=== PATIENT | female | born 1965 | race Caucasian/White ===

== ENCOUNTER 2017-02-13 01:00 | Inpatient (IN) | payer OTHER ==
[2017-02-13] VITALS (13 sets, daily range): BP systolic 155–173; BP diastolic 70–82; PULSE 74–99; RESP 18–24; TEMP 97.7–98.4; O2SAT 96–97
[~2017-02-13 01:00] MED LIST: METO50TA PO; OMEP40CA2 PO; SIMV40TA PO
--- NOTE | 2017-02-13 02:28 | HHI.HP ---
HPI Service Critical Care Medicine Primary Care Physician Unknown Admission Diagnosis Diagnosis: Travel History International Travel<30 Days: No Contact w/Intl Traveler <30 Da: No Traveled to Known Affected Are: No History of Present Illness 51-year-old female with a past medical history of hypertension presents with left-sided weakness left facial droop, altered mental status. Symptoms started at 2044. Patient had GI upset symptoms for the last 3-4 days including nausea, vomiting, diarrhea. Her brought her to the emergency room for the gastric enteritis symptoms however in route patient presented with left sided weakness that progressively got worse to the point he had to left her off the car to the emergency room wheelchair. Was evaluated by neurologist sap functional analyst and decision was made to administer TPA. Review of Systems Constitutional: DENIES: Diaphoretic episodes, Fatigue, Fever, Weight gain, Weight loss, Chills, Dizziness, Change in appetite, Night Sweats Endocrine: DENIES: Abnorml menstrual pattern, Heat/cold intolerance, Polydipsia , Polyuria, Polyphagia Eyes: DENIES: Blurred vision, Diplopia, Eye inflammation, Eye pain, Vision loss , Photosensitivity, Double Vision Ears, nose, mouth, throat: DENIES: Tinnitus, Hearing loss, Vertigo, Nasal discharge, Oral lesions, Throat pain, Hoarseness, Ear Pain, Running Nose, Epistaxis, Sinus Pain, Toothache, Odynophagia Respiratory: DENIES: Apneas, Cough, Snoring, Wheezing, Hemoptysis, Sputum production, Shortness of breath Cardiovascular: DENIES: Chest pain, Palpitations, Syncope, Dyspnea on Exertion , PND, Lower Extremity Edema, Orthopnea, Claudication Gastrointestinal: COMPLAINS OF: Vomiting, DENIES: Abdominal pain, Black stools , Bloody stools, Constipation, Diarrhea, Nausea, Difficulty Swallowing, Anorexia Genitourinary: DENIES: Abnormal vaginal bleeding, Dysmenorrhea, Dyspareunia, Sexual dysfunction, Urinary frequency, Urinary incontinence, Urgency, Hematuria , Dysuria, Nocturia, Vaginal discharge Musculoskeletal: DENIES: Joint pain, Muscle aches, Stiffness, Joint Swelling, Back pain, Neck pain Integumentary: DENIES: Abnormal pigmentation, Pruritus, Rash, Nail changes, Breast masses, Breast skin changes, Nipple discharge Hematologic/lymphatic: DENIES: Bruising, Lymphadenopathy Immunologic/allergic: DENIES: Eczema, Urticaria Neurologic: COMPLAINS OF: Abnormal gait, Localized weakness, Poor Balance, DENIES: Headache, Paresthesias, Seizures, Speech Problems, Tremor Psychiatric: DENIES: Anxiety, Confusion, Mood changes, Depression, Hallucinations, Agitation, Suicidal Ideation, Homicidal Ideation, Delusions Past Family Social History Allergies: Coded Allergies: Sulfa (Sulfonamide Antibiotics) (Verified Allergy, Unknown, 02/12/17) Past Medical History Hypertension: Yes Reported Medications Reported Meds & Active Scripts Active Reported Simvastatin 40 Mg Tab 40 Mg PO HS Omeprazole 40 Mg Cap 40 Mg PO DAILY Metoprolol Tartrate 50 Mg Tab 50 Mg PO BID Active Ordered Medications Current Medications Medications (Trade) Dose Ordered Sig/Silas Route PRN Reason Start Time Stop Time Status Last Admin Dose Admin Metoprolol Tartrate (Lopressor) 50 mg BID PO 02/13/17 09:00 Pravastatin Sodium (Pravachol) 80 mg HS PO 02/13/17 21:00 Sodium Chloride 1,000 ml @ 84 mls/hr [id number] IV 02/13/17 02:22 Sodium Chloride (NS Flush) 2 ml UNSCH PRN IV FLUSH FLUSH AFTER USING IV ACCESS 02/13/17 02:30 Sodium Chloride (NS Flush) 2 ml BID IV FLUSH 02/13/17 09:00 Acetaminophen (Tylenol) 650 mg Q6H PRN PO PAIN 1-10 AND/OR FEVER >101F 02/13/17 02:30 Famotidine (Pepcid Inj) 20 mg Q12HR IV PUSH 02/13/17 09:00 Ondansetron HCl (Zofran Inj) 4 mg Q6H PRN IV PUSH NAUSEA OR VOMITING 02/13/17 02:30 Albuterol/ Ipratropium (Duoneb Neb) 1 ampule Q2HR NEB PRN INH WHEEZING 02/13/17 02:30 Miscellaneous Information 1 [id number] XX 02/13/17 02:30 Chlorhexidine Gluconate (Chlorhexidine 2% Cloth) 3 pack Taper DAILY@04 TOP 02/13/17 04:00 02/09/18 03:59 Chlorhexidine Gluconate (Chlorhexidine 2% Cloth) 3 pack UNSCH PRN TOP HYGIENIC CARE 02/13/17 02:30 Senna/Docusate Sodium (Brea-Colace) 1 tab BID PO 02/13/17 09:00 Magnesium Hydroxide (Milk Of Magnesia Liq) 30 ml Q12H PRN PO Mild constipation 02/13/17 02:30 Sennosides (Senokot) 17.2 mg Q12H PRN PO Moderate constipation 02/13/17 02:30 Bisacodyl (Dulcolax Supp) 10 mg DAILY PRN RECTAL SEVERE CONSITIPATION 02/13/17 02:30 Lactulose (Lactulose Liq) 30 ml DAILY PRN PO SEVERE CONSITIPATION 02/13/17 02:30 Family History No family history of early stroke Social History Denies tobacco, alcohol, or illicit drug abuse Physical Exam Physical Exam General: Patient is alert awake and oriented 3 SKIN: Focused skin assessment warm/dry. HEAD: Atraumatic. Normocephalic. EYES: Pupils equal and round. No scleral icterus. No injection or drainage. ENT: No nasal bleeding or discharge. Mucous membranes pink and moist. NECK: Trachea midline. No JVD. CARDIOVASCULAR: Regular rate and rhythm. No murmur appreciated. RESPIRATORY: No accessory muscle use. Clear to auscultation. Breath sounds equal bilaterally. GASTROINTESTINAL: Abdomen soft, non-tender, nondistended. Hepatic and splenic margins not palpable. MUSCULOSKELETAL: No obvious deformities. No clubbing. No cyanosis. No edema. NEUROLOGICAL: Awake and alert. Left-sided paralysis left facial droop and slurring of speech. PSYCHIATRIC: Appropriate mood and affect; insight and judgment normal. Caprini VTE Risk Assessment Caprini VTE Risk Assessment: Mod/High Risk (score >= 2) VTE Pharm Contraindication: Documented Caprini Risk Assessment Model Point Value = 1 Point Value = 2 Point Value = 3 Point Value = 5 Age 41-60 Minor surgery BMI > 25 kg/m2 Swollen legs Varicose veins or History of unexplained or recurrent spontaneous Oral contraceptives or hormone replacement Sepsis (< 1 month) Serious lung disease, including pneumonia (< 1 month) Abnormal pulmonary function Acute myocardial infarction Congestive heart failure (< 1 month) History of inflammatory bowel disease Medical patient at bed rest Age 61-74 Arthroscopic surgery Major open surgery (> 45 min) Laparoscopic surgery (> 45 min) Malignancy Confined to bed (> 72 hours) Immobilizing plaster cast Central venous access Age >= 75 History of VTE Family history of VTE Factor V Leiden Prothrombin [id number] Lupus anticoagulant Anticardiolipin antibodies Elevated serum homocysteine Heparin-induced thrombocytopenia Other congenital or acquired thrombophilia Stroke (< 1 month) Elective arthroplasty Hip, pelvis, or leg fracture Acute spinal cord injury (< 1 month) Prophylaxis Regimen Total Risk Factor Score Risk Level Prophylaxis Regimen 0-1 Low Early ambulation 2 Moderate Order ONE of the following: *Sequential Compression Device (SCD) *Heparin 5000 units SQ BID 3-4 Higher Order ONE of the following medications: *Heparin 5000 units SQ TID *Enoxaparin/Lovenox 40 mg SQ daily (WT < 150 kg, CrCl > 30 mL/min) *Enoxaparin/Lovenox 30 mg SQ daily (WT < 150 kg, CrCl > 10-29 mL/min) *Enoxaparin/Lovenox 30 mg SQ BID (WT < 150 kg, CrCl > 30 mL/min) AND/OR *Sequential Compression Device (SCD) 5 or more Highest Order ONE of the following medications: *Heparin 5000 units SQ TID (Preferred with Epidurals) *Enoxaparin/Lovenox 40 mg SQ daily (WT < 150 kg, CrCl > 30 mL/min) *Enoxaparin/Lovenox 30 mg SQ daily (WT < 150 kg, CrCl > 10-29 mL/min) *Enoxaparin/Lovenox 30 mg SQ BID (WT < 150 kg, CrCl > 30 mL/min) AND *Sequential Compression Device (SCD) Assessment and Plan Assessment and Plan Acute CVA - Status post TPA administration - Neuro checks every hour - Management per neurology - PT and OT - SBP goal less than 180 Hypertension - Labetalol and hydralazine when necessary to keep SBP less than 180 Dyslipidemia - Simvastatin GERD - IV Pepcid twice a day DVT GI prophylaxis - Teds SCDs - No pharmacological DVT prophylaxis until 24 hours after TPA administration - Pepcid Critical Care: The total critical care time was 35 minutes. Time to perform other separately billable procedures was not included in the critical care time. Germán Bush MD Feb 13, 2017 2:28 am
[2017-02-13] MEDS ORDERED: MISCELLANEOUS NURSING INFORMATION XX SCH (02:30)
[2017-02-13] MEDS ORDERED: CHLORHEXIDINE GLUCONATE 2 % 1 PACK (2 CLOTHS) TOP PRN (02:30)
[2017-02-13] MEDS ORDERED: BISACODYL 10 MG SUPP RECTAL PRN (02:30)
[2017-02-13] MEDS ORDERED: LACTULOSE SYRUP 20 GM/30 ML CUP PO PRN (02:30)
[2017-02-13] MEDS ORDERED: MAGNESIUM HYDROXIDE SUSP 30 ML CUP PO PRN (02:30)
[2017-02-13] MEDS ORDERED: SENNOSIDES 8.6 MG TAB PO PRN (02:30)
[2017-02-13] MEDS ORDERED: RESP: ALBUTEROL 2.5 MG/IPRATROPIUM 0.5 MG NEB (PRN) INH (02:30)
[2017-02-13] MEDS ORDERED: ONDANSETRON HCL 4 MG/2 ML VIAL IV PUSH PRN (02:30)
[2017-02-13] MEDS ORDERED: SODIUM CHLORIDE 0.9% FLUSH 10 ML FLUSH IV FLUSH PRN (02:30)
[2017-02-13] MEDS: CHLORHEXIDINE GLUCONATE 2 % 1 PACK (2 CLOTHS) TOP SCH (04:00)
[2017-02-13] MEDS: SODIUM CHLOR 0.9% 1000 ML INJ 1,000 ML IV SCH ×3 (04:00→20:05)
[2017-02-13] MEDS ORDERED: PANTOPRAZOLE SODIUM 40 MG VIAL IV PUSH ONE (06:15)
[2017-02-13] MEDS: DOCUSATE SODIUM 50 MG/SENNA 8.6 MG TAB PO SCH ×2 (07:44→20:04)
[2017-02-13] MEDS: FAMOTIDINE 20 MG/2 ML VIAL IV PUSH SCH ×2 (07:45→20:04)
[2017-02-13] MEDS: SODIUM CHLORIDE 0.9% FLUSH 10 ML FLUSH IV FLUSH SCH ×2 (07:45→21:00)
[2017-02-13] MEDS: METOPROLOL TARTRATE 50 MG TAB PO SCH ×2 (07:45→21:00)
--- NOTE | 2017-02-13 09:35 | EKG ---
Date Performed: 02/13/2017 Time Performed: 07:19:04 PTAGE: 51 years EKG: Sinus rhythm POSSIBLE LEFT ATRIAL ENLARGEMENT POSSIBLE INFERIOR MYOCARDIAL INFARCTION , OF INDETERMINATE AGE Nons pecific T wave changes No significant change from prior electrocardiogram. NO PREVIOUS TRACING DOCTOR: Shreyas Miller Interpretating Date/Time 02/13/2017 09:34:39
[2017-02-13] MEDS: hydrALAZINE HCL 20 MG/ML VIAL IV PUSH PRN (17:45)
[2017-02-13] MEDS: LABETALOL HCL 100 MG/20 ML VIAL IV PUSH PRN (18:46)
[2017-02-13] MEDS: ACETAMINOPHEN 325 MG TAB PO PRN (19:43)
[2017-02-13] MEDS: PRAVASTATIN SOD 80 MG TAB PO SCH (20:04)
[2017-02-13 22:09] LABS: AUTOMATED NEUTROPHIL # 14.4 TH/MM3 (1.8-7.7); BASOPHIL % 0.1 % (0.0-2.0); EOSINOPHIL % 0.1 % (0.0-4.0); HEMATOCRIT 44.5 % (35.0-46.0); LYMPH % 9.4 % (9.0-44.0); LYMPHOCYTE # 1.7 TH/MM3 (1.0-4.8); MEAN CELL VOLUME 94.4 FL (80.0-100.0); MEAN CORPUSCULAR HEMOGLOBIN 31.5 PG (27.0-34.0); MEAN CORPUSCULAR HGB CONC 33.3 % (32.0-36.0); MONO % 11.8 % (0.0-8.0); NEUT % 78.6 % (16.0-70.0); PLATELET COUNT 399 TH/MM3 (150-450); RED BLOOD COUNT 4.72 MIL/MM3 (4.00-5.30); RED CELL DISTRIBUTION WIDTH 14.8 % (11.6-17.2); WHITE BLOOD COUNT 18.4 TH/MM3 (4.0-11.0)
[2017-02-13 22:22] LABS: HEMO FLAGS AUTO DIFF
--- NOTE | 2017-02-13 22:22 | RADRPT ---
EXAM DATE/TIME: 02/13/2017 22:05 [facility] COMPARISON: CT BRAIN W/O CONTRAST, February 12, 2017, 21:43. INDICATIONS : F/U strokde 02/12/17, post TPA 02/12/17 2303. Left side facial droop. RADIATION DOSE: 35.15 CTDIvol (mGy) MEDICAL HISTORY : Hypertension. SURGICAL HISTORY : None. ENCOUNTER: Subsequent ACUITY: 1 day PAIN SCALE: 0/10 LOCATION: cranial TECHNIQUE: Multiple contiguous axial images were obtained of the head. Using automated exposure control and adj ustment of the mA and/or kV according to patient size, radiation dose was kept as low as reasonably a chievable to obtain optimal diagnostic quality images. DICOM format image data is available electro nically for review and comparison. FINDINGS: CEREBRUM: The ventricles are normal for age. Interval development of a focal area of hypodensity in the high r ight anterior parietal convexity characteristic of interval infarction. No evidence of midline shift, mass lesion, hemorrhage or acute infarction. No extra-axial fluid collections are seen. POSTERIOR FOSSA: The cerebellum and brainstem are intact. The 4th ventricle is midline. The cerebellopontine angle i s unremarkable. EXTRACRANIAL: The visualized portion of the orbits is intact. SKULL: The calvaria is intact. No evidence of skull fracture. CONCLUSION: 1. Interval development of a focal area of hypodensity in the high right anterior parietal convexity characteristic of a branch vessel infarct in the right MCA territory. 2. No acute hemorrhage. No midline shift. Jered Harley MD on February 13, 2017 at 22:17 Board Certified Radiologist. This report was verified electronically.
[2017-02-13 22:28] LABS: ANION GAP 12 MEQ/L (5-15); AST (GOT) 21 U/L (15-37); BICARBONATE 17.6 MEQ/L (21.0-32.0); BLOOD UREA NITROGEN 20 MG/DL (7-18); CHLORIDE 109 MEQ/L (98-107); GLOMERULAR FILTRATION RATE 46 ML/MIN (>89); MAGNESIUM 2.1 MG/DL (1.5-2.5); SODIUM (NA) 139 MEQ/L (136-145)
[2017-02-13 22:30] LABS: ALT (GPT) 19 U/L (10-53)
[2017-02-13 22:32] LABS: ALKALINE PHOSPHATASE 99 U/L (45-117); TOTAL BILIRUBIN ADULT 0.2 MG/DL (0.2-1.0)
[2017-02-13 22:45] LABS: BANDS 6 % (0-6); NEUTROPHIL # MANUAL DIFF 14.4 TH/MM3 (1.8-7.7); POLYS (SEG NEUTROPHILS) 72 % (16-70); WBC DIFF SAMPLE 100
[2017-02-13 22:46] LABS: PLATELET ESTIMATE SMEAR NORMAL (NORMAL); PLATELET MORPHOLOGY NORMAL (NORMAL); SCAN/DIFF FINAL DIFF MANUAL; TEARDROP RBCS 1+ (NORMAL)
[2017-02-14] VITALS (12 sets, daily range): BP systolic 161–190; BP diastolic 72–84; PULSE 74–90; RESP 17–22; TEMP 97.6–98.4; O2SAT 96–98
[2017-02-14] MEDS: LABETALOL HCL 100 MG/20 ML VIAL IV PUSH PRN ×6 (00:15→18:35)
[2017-02-14] MEDS: CHLORHEXIDINE GLUCONATE 2 % 1 PACK (2 CLOTHS) TOP SCH (04:00)
[2017-02-14 05:19] LABS: BASOPHIL % 0.3 % (0.0-2.0); EOSINOPHIL # 0.1 TH/MM3 (0-0.4); EOSINOPHIL % 0.4 % (0.0-4.0); HEMATOCRIT 43.2 % (35.0-46.0); HEMO FLAGS DIFF FINAL; LYMPH % 12.5 % (9.0-44.0); LYMPHOCYTE # 2.1 TH/MM3 (1.0-4.8); MEAN CELL VOLUME 93.1 FL (80.0-100.0); MEAN CORPUSCULAR HGB CONC 33.3 % (32.0-36.0); MONO % 11.1 % (0.0-8.0); NEUT % 75.7 % (16.0-70.0); PLATELET COUNT 398 TH/MM3 (150-450); RED BLOOD COUNT 4.64 MIL/MM3 (4.00-5.30); RED CELL DISTRIBUTION WIDTH 14.7 % (11.6-17.2); WHITE BLOOD COUNT 17.2 TH/MM3 (4.0-11.0)
[2017-02-14 05:43] LABS: ANION GAP 11 MEQ/L (5-15); AST (GOT) 17 U/L (15-37); BICARBONATE 18.9 MEQ/L (21.0-32.0); BLOOD UREA NITROGEN 18 MG/DL (7-18); CHLORIDE 110 MEQ/L (98-107); GLOMERULAR FILTRATION RATE 61 ML/MIN (>89); MAGNESIUM 2.2 MG/DL (1.5-2.5); POTASSIUM 3.9 MEQ/L (3.5-5.1); SODIUM (NA) 140 MEQ/L (136-145)
[2017-02-14 05:47] LABS: ALKALINE PHOSPHATASE 88 U/L (45-117); ALT (GPT) 16 U/L (10-53); TOTAL BILIRUBIN ADULT 0.2 MG/DL (0.2-1.0)
[2017-02-14] MEDS: METOPROLOL TARTRATE 50 MG TAB PO SCH ×2 (07:34→21:00)
[2017-02-14] MEDS: DOCUSATE SODIUM 50 MG/SENNA 8.6 MG TAB PO SCH ×2 (07:35→21:00)
[2017-02-14] MEDS: FAMOTIDINE 20 MG/2 ML VIAL IV PUSH SCH ×2 (07:35→22:31)
[2017-02-14] MEDS: SODIUM CHLORIDE 0.9% FLUSH 10 ML FLUSH IV FLUSH SCH ×2 (07:36→22:10)
--- NOTE | 2017-02-14 08:20 | RADRPT ---
EXAM DATE/TIME: 02/14/2017 07:57 [facility] COMPARISON: CT BRAIN W/O CONTRAST, February 13, 2017, 22:05. INDICATIONS : Altered mental status post TPA. RADIATION DOSE: 55.78 CTDIvol (mGy) MEDICAL HISTORY : Cerebrovascular disease. Hypertension. SURGICAL HISTORY : Nephrectomy, right. ENCOUNTER: Subsequent ACUITY: 2 days PAIN SCALE: 0/10 LOCATION: cranial TECHNIQUE: Multiple contiguous axial images were obtained of the head. Using automated exposure control and adj ustment of the mA and/or kV according to patient size, radiation dose was kept as low as reasonably a chievable to obtain optimal diagnostic quality images. DICOM format image data is available electro nically for review and comparison. FINDINGS: Again seen is an area of decreased density involving the cortex and underlying white matter within th e right frontal lobe. This is consistent with an infarction within the right MCA territory. This is u nchanged. No hemorrhage observe. No mass appreciated. Ventricles are normal in size. The calvarium is intact. CONCLUSION: Unchanged right MCA territory infarction. No hemorrhage. Farooq Saldana Jr., MD on February 14, 2017 at 8:15 Board Certified Radiologist. This report was verified electronically.
[2017-02-14] MEDS: LISINOPRIL 5 MG TAB PO SCH ×2 (09:30→21:00)
--- NOTE | 2017-02-14 09:34 | HHI.CCPN ---
Subjective Remarks/Hospital Course 51-year-old female with a past medical history of hypertension presents with left-sided weakness left facial droop, altered mental status. Symptoms started at 2044. Patient had GI upset symptoms for the last 3-4 days including nausea, vomiting, diarrhea. Her brought her to the emergency room for the gastric enteritis symptoms however in route patient presented with left sided weakness that progressively got worse to the point he had to left her off the car to the emergency room wheelchair. Was evaluated by neurologist protection officer and decision was made to administer TPA. 02/14: CT Head with unchanged right frontal lobe infarct. Moderate hypertension controlled with prn. Add lisinopril to lopressor (home med). New tremor left side. For MRI today. Objective Vital Signs Date Time Temp Pulse Resp B/P (MAP) Pulse Ox O2 Delivery O2 Flow Rate FiO2 02/14/17 06:00 80 02/14/17 04:00 97.9 17 186/80 (115) 96 02/13/17 20:20 21 02/13/17 07:49 Nasal Cannula 3.00 Intake and Output 02/14/17 02/14/17 02/15/17 08:00 16:00 00:00 Intake Total 240 ml Output Total 625 ml Balance -385 ml Result Diagram: 02/14/17 0412 02/14/17 041 Objective Remarks General: Patient is alert awake and oriented 3 HEAD: Atraumatic. Normocephalic. EYES: Pupils equal and round. No scleral icterus. No injection or drainage. ENT: No nasal bleeding or discharge. Mucous membranes pink and moist. NECK: Trachea midline. No JVD. CARDIOVASCULAR: Regular rate and rhythm. No murmur appreciated. RESPIRATORY: No accessory muscle use. Clear to auscultation. Breath sounds equal bilaterally. Comfortable. GASTROINTESTINAL: Abdomen soft, non-tender, nondistended. Hepatic and splenic margins not palpable. MUSCULOSKELETAL: No obvious deformities. No clubbing. No cyanosis. No edema. NEUROLOGICAL: Awake and alert. Left-sided weakness and left facial droop and mild slurring of speech. PSYCHIATRIC: Appropriate mood and affect; insight and judgment normal. A/P Assessment and Plan Acute CVA - Status post TPA administration 02/12 in [place]. - Neuro checks every 2 hour - Management per neurology - PT and OT - SBP goal less than 180 Hypertension - Labetalol and hydralazine when necessary to keep SBP less than 180 Dyslipidemia - Simvastatin GERD - IV Pepcid twice a day DVT GI prophylaxis - Teds SCDs - No pharmacological DVT prophylaxis until 24 hours after TPA administration - Pepcid Overall impression: Fixed neuro deficit s/p ischemic CVA. Needs better BP control. Lorenzo Rodríguez MD Feb 14, 2017 09:34
[2017-02-14] MEDS: ACETAMINOPHEN 325 MG TAB PO PRN (09:44)
[2017-02-14] MEDS: NICOTINE 21 MG/24 HR PATCH T-DERMAL SCH (11:00)
[2017-02-14] MEDS: SODIUM CHLOR 0.9% 1000 ML INJ 1,000 ML IV SCH (14:07)
--- NOTE | 2017-02-14 15:25 | RADRPT ---
EXAM DATE/TIME: 02/14/2017 14:38 [facility] COMPARISON: MRA BRAIN W/O CONTRAST, February 14, 2017, 14:38. CT BRAIN W/O CONTRAST, February 13, 2017, 22:05. CT BRAIN W/O CONTRAST, February 12, 2017, 21:43. CT BRAIN W/O CONTRAST, February 14, 2017, 7:57. INDICATIONS : Followup cerebral vascular accident status post TPA administration on 1127 2016. Left-sided facial dr oop. Abnormal prior head CT with right middle cerebral artery territory infarct. MEDICAL HISTORY : Hypertension. SURGICAL HISTORY : Nephrectomy, right. ENCOUNTER: Initial ACUITY: 1 day PAIN SCORE: 0/10 LOCATION: Head. TECHNIQUE: Multiplanar, multisequence MRI of the brain was performed without contrast. FINDINGS: CEREBRUM: The ventricles are normal for age. No evidence of midline shift, mass lesion, hemorrhage or acute in farction. No extraaxial fluid collections are seen. The pituitary gland and suprasellar cistern are normal in configuration. WHITE MATTER: Increased signal is noted on the flair weighted images in the areas of restricted diffusion. There ar e several small scattered areas of punctate signal noted in the deep white matter consistent with chr onic small vessel ischemic change. POSTERIOR FOSSA: The cerebellum and brainstem are intact. The 4th ventricle is midline. The cerebellopontine angle is unremarkable. The cerebellar tonsils are normal in position. DIFFUSION IMAGING: There is a large area of restricted diffusion noted involving the right frontal and parietal lobes me asuring up to 6 x 4 cm. There is a smaller focal cortical area of restricted diffusion involving the right parietal occipital watershed region. There are smaller punctate areas of restricted diffusion i n the deep white matter along the right lateral ventricle. There is no mass effect or midline shift. EXTRACRANIAL: The visualized portions of the orbits and paranasal sinuses are unremarkable. CONCLUSION: 1. Acute to subacute areas of infarction in the right middle cerebral artery territory. 2. No acute hemorrhage, mass effect or midline shift. Stephen Lott MD on February 14, 2017 at 15:16 Board Certified Radiologist. This report was verified electronically.
--- NOTE | 2017-02-14 15:39 | ECHRPT ---
Indication: cva/tia CONCLUSIONS The left ventricular systolic function is normal with an estimated ejection fraction in the range of 55-60%. Normal left ventricular size. Trace mitral valve regurgitation. There is mild tricuspid valve regurgitation. The pulmonary valve is not well visualized. BP: / HR: Rhythm: Technical Quality:Technically difficult study FINDINGS LEFT VENTRICLE The left ventricular systolic function is normal with an estimated ejection fraction in the range of 55-60%. Normal left ventricular size. RIGHT VENTRICLE Normal right ventricular size and systolic function. LEFT ATRIUM The left atrial size is normal. RIGHT ATRIUM The right atrial size is normal. ATRIAL SEPTUM Normal atrial septal thickness without atrial level shunting by limited color doppler interrogation. AORTA The aortic root and proximal ascending aorta are normal in size on limited imaging. MITRAL VALVE Trace mitral valve regurgitation. Structurally normal mitral valve. AORTIC VALVE Trileaflet aortic valve. No aortic valve stenosis or regurgitation. TRICUSPID VALVE There is mild tricuspid valve regurgitation. Structurally normal tricuspid valve. PULMONARY VALVE The pulmonary valve is not well visualized. VESSELS The inferior vena cava is normal in size. PERICARDIUM No pericardial effusion. Chuy Arguelles MD (Electronically Signed) Final Date:14 February 2017 15:38
--- NOTE | 2017-02-14 16:12 | RADRPT ---
EXAM DATE/TIME: 02/14/2017 14:38 [facility] COMPARISON: MRI BRAIN W/O CONTRAST, February 14, 2017, 14:38. INDICATIONS : CVA. MEDICAL HISTORY : Hypertension. SURGICAL HISTORY : Nephrectomy, right. ENCOUNTER: Initial ACUITY: 1 day PAIN SCORE: 0/10 LOCATION: Head. Please note a normal MRA of the brain does not entirely exclude the possibility of a small aneurysm, nor the possibility of distal intracranial vessel disease. TECHNIQUE: 3D time of flight MRA was performed. Source images, multiplanar STS MIP, and 3D volume MIP reconstru ctions were reviewed. FINDINGS: The right distal internal carotid demonstrates an area of focal high grade stenosis/subtotal occlusio n in the cavernous carotid segment. The a common is patent. There is reconstitution of the intracrani al branches of the anterior cerebral middle cerebral on the right side. The left internal carotid is widely patent. The appearance of the anterior and middle cerebral circul ation on the left is widely patent. Both vertebrals are patent. The basilar is widely patent and the posterior cerebral circulation is wi thin normal limits bilaterally. 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 This is possibly embolic material which is become trapped at this location versus focal stenosis. Of note, there is a widely patent anterior communicating. The anterior and middle cerebral branches on the right appear widely patent. Jose Steiner MD on February 14, 2017 at 15:58 Board Certified Radiologist. This report was verified electronically.
[2017-02-14] MEDS: hydrALAZINE HCL 20 MG/ML VIAL IV PUSH PRN (17:04)
[2017-02-14] MEDS ORDERED: ASPIRIN EC 325 MG TABEC PO SCH (20:00)
--- NOTE | 2017-02-14 20:04 | MB ---
cc: ROSA CHEN MD DATE OF CONSULTATION 02/14/17 She is a 51-year-old seen in neurological consultation a couple of hours ago. It was approximately 4:00 p.m. when I saw her. She was initially treated at [facility] emergency room. I was transitions manager on 02/12 when I received a call around 11:00 p.m. about the fact that she was evaluated there for a stroke with left hemiparesis and was a candidate for TPA. At that time, TPA had been given and they were going to transfer her to the unit at [facility]. This was a bit unusual because as far as I am able to recall, I was not called or contacted before the TPA was given and, indeed, I checked with our answering service and we only received one call around 10:58 p.m. on that evening. Subsequently, a neurology consultation was never placed, but yesterday before noon I was called and the nursing staff wanted to be sure this patient was going to be seen. We realized a consultation was never placed. I asked the nursing staff to put a consult for the neurology service and this consult was sent to Dr. Severino who was transitions manager yesterday, but this morning I received a message from Dr. Severino and I agreed to see the patient today. I spoke to the nursing staff earlier today on a couple of occasions and saw the patient a couple of hours ago as discussed above. She has a history of hypertension and GI symptoms and she was on Omeprazole, statin and metoprolol. It appears that she was coming to the hospital because of a GI syndrome and on her way to the emergency room or on her way to the main hospital, she had neurologic deficit and then was evaluated in the emergency room at that point for the neurologic deficits of left-sided weakness. She was given TPA and had no complication to the TPA, although her blood pressure was elevated and she was treated for the elevated blood pressure. She never had a stroke or TIAs in the past. No history of seizures or cancer. She is not diabetic. She denied any family history of a stroke at a young age. When I saw her, she also told me that about a week ago she had some double vision and she saw the eye doctor and there was no apparent significant findings on the eye exam or a specific diagnosis. On my exam, she was alert pleasant, oriented and she was in good spirits and moved the right-sided limbs strongly, but had severe left hemiparesis with the left side being either zero or 1/5. The left facial weakness was just mild to moderately severe. The speech was very mildly dysarthric. She could perceive some sensory stimulation on the left but clearly had some deficits in terms of perception to more detailed stimulation or position sense in the left distal lower extremity. Reflexes showed a left plantar extensor response, otherwise, 1-2+ reflexes throughout. The pupils were about the same size, reactive. and she seemed to be able to count fingers bilaterally in the visual brown. In reviewing the data, the patient had CT angio head and neck at the [facility] emergency room evaluation and these studies were essentially negative, unremarkable. The CT brain at that hospital was discussed by the ER doctor as unremarkable, although I did not see the report of the study. Anyway, she had another CT brain yesterday and perhaps even one today that showed the evolving stroke and I have reviewed one of these scans. I reviewed the MRI brain that was done today as I was in the MRI room when she was having the procedure done. The study shows a relatively large right frontal ischemic subacute infarct and there is also a small area of right parietal occipital infarct also acute/subacute. There is no midline shift. ASSESSMENT Ischemic stroke in two different areas, the right frontal and also right parietal occipital watershed region which is a smaller event. TPA given appropriately and evidently no overt response immediately seen. I am requesting hypercoagulable profile, starting the patient on aspirin. An echocardiogram was largely unremarkable. The blood work is showing elevated white count, 17.2 today and 18.4 yesterday, and the patient had some GI syndrome before the stroke symptoms. Chemistry profile is seen, mostly unremarkable. I am going to request a lipid profile and she had been on statin and she is now on continuing statin therapy. I am going to request a transesophageal echocardiogram and she reportedly has been in sinus rhythm. SCDs to be ordered as well. Stroke rehab in progress. ADDENDUM As I was starting to dictate this, I received a call from the nursing staff about some neurologic decline and I am going to have a stat CT brain on this patient and hold off the aspirin until we have the CT brain results back. I will follow the neurological course. Thank you for asking us to assist in her care. MD YAYA Macedo /6:52 PM /7:07 PM
[2017-02-14] MEDS: PRAVASTATIN SOD 80 MG TAB PO SCH (21:00)
--- NOTE | 2017-02-14 21:00 | RADRPT ---
EXAM DATE/TIME: 02/14/2017 19:12 [facility] COMPARISON: MRI BRAIN W/O CONTRAST, February 14, 2017, 14:38. CT BRAIN W/O CONTRAST, February 14, 2017, 7:57. INDICATIONS : Post stroke alert,new symtoms slurred speech. RADIATION DOSE: 45.93 CTDIvol (mGy) MEDICAL HISTORY : Cerebrovascular disease. Hypertension. SURGICAL HISTORY : None. ENCOUNTER: Initial ACUITY: 1 day PAIN SCALE: Non-responsive LOCATION: cranial TECHNIQUE: Multiple contiguous axial images were obtained of the head. Using automated exposure control and adj ustment of the mA and/or kV according to patient size, radiation dose was kept as low as reasonably a chievable to obtain optimal diagnostic quality images. DICOM format image data is available electro nically for review and comparison. FINDINGS: CEREBRUM: There continues to be decreased density seen throughout the right frontal lobe superiorly. This may i nvolve the anterior aspect of the right parietal lobe. Significant hemorrhage is not identified. The ventricles are normal for age. No evidence of midline shift, mass lesion, hemorrhage. No extra-axia l fluid collections are seen. POSTERIOR FOSSA: The cerebellum and brainstem are intact. The 4th ventricle is midline. The cerebellopontine angle i s unremarkable. EXTRACRANIAL: The visualized portion of the orbits is intact. SKULL: The calvaria is intact. No evidence of skull fracture. CONCLUSION: Persistent low-density/infarction at the right frontal and anterior parietal lobes. Gerard Donovan MD on February 14, 2017 at 20:54 Board Certified Radiologist. This report was verified electronically.
[2017-02-14] MEDS: ASPIRIN 300 MG SUPP RECTAL SCH (21:51)
[2017-02-14 22:43] LABS: HDL CHOLESTEROL 38.8 MG/DL (40.0-60.0)
[2017-02-15] VITALS (12 sets, daily range): BP systolic 159–192; BP diastolic 70–83; PULSE 72–97; RESP 16–23; TEMP 97.9–98.8; O2SAT 94–99
[2017-02-15] MEDS: LABETALOL HCL 100 MG/20 ML VIAL IV PUSH PRN ×2 (00:33→17:13)
[2017-02-15] MEDS: hydrALAZINE HCL 20 MG/ML VIAL IV PUSH PRN ×2 (01:49→18:56)
[2017-02-15] MEDS: SODIUM CHLOR 0.9% 1000 ML INJ 1,000 ML IV SCH ×2 (02:50→13:57)
[2017-02-15] MEDS: ACETAMINOPHEN 325 MG TAB PO PRN (03:07)
[2017-02-15] MEDS: CHLORHEXIDINE GLUCONATE 2 % 1 PACK (2 CLOTHS) TOP SCH (04:00)
--- NOTE | 2017-02-15 07:23 | PD.CONS ---
HPI Consult Requested By Primary Care Physician Unknown History of Present Illness 51-year-old female with a past medical history of hypertension and HLD presents with left-sided weakness left facial droop, altered mental status diagnosed with acute stroke consulted for SARA. 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 Review of Systems Consitutional: DENIES: Fatigue, Fever, Chills, Weight gain, Weight loss Eyes: DENIES: Amaurosis Fugax, Change in vision HEENT: DENIES: Lightheadedness, Change in hearing Respiratory: DENIES: See HPI, Cough, Snoring, Shortness of breath, Wheezing, Sputum production Cardiovascular: DENIES: See HPI, Chest pain, Palpitations, Syncope, Tachycardia Gastrointestinal: DENIES: Nausea, Vomiting, Change in bowel habits, Reflux, Bloody stools, Melena Genitourinary: DENIES: Urinary incontinence, Difficulty voiding Integumentary: DENIES: Rash Neurologic: DENIES: Tingling or numbness, Memory problems, Poor Balance, Stroke symptoms Musculoskeletal: DENIES: Joint pain, Muscle pain, Limited range of motion, Back pain Psychiatric: DENIES: Anxiety, Depression, Sleep disturbances Hematologic: DENIES: Bruising tendencies, Bleeding tendencies Past Family Social History Allergies: Coded Allergies: Sulfa (Sulfonamide Antibiotics) (Verified Allergy, Unknown, 02/12/17) Past Medical History HTN HLD Reported Medications Reported Meds & Active Scripts Active Reported Simvastatin 40 Mg Tab 40 Mg PO HS Omeprazole 40 Mg Cap 40 Mg PO DAILY Metoprolol Tartrate 50 Mg Tab 50 Mg PO BID Active Ordered Medications Current Medications Medications (Trade) Dose Ordered Sig/Silas Route Start Time Stop Time Status Last Admin (Lopressor) 50 mg BID PO 02/13/17 09:00 02/14/17 07:34 (Pravachol) 80 mg HS PO 02/13/17 21:00 02/13/17 20:04 Sodium Chloride 1,000 ml @ 84 mls/hr [id number] IV 02/13/17 02:22 02/15/17 02:50 (NS Flush) 2 ml UNSCH PRN IV FLUSH 02/13/17 02:30 (NS Flush) 2 ml BID IV FLUSH 02/13/17 09:00 02/14/17 22:10 (Tylenol) 650 mg Q6H PRN PO 02/13/17 02:30 02/15/17 03:07 (Pepcid Inj) 20 mg Q12HR IV PUSH 02/13/17 09:00 02/14/17 22:31 (Zofran Inj) 4 mg Q6H PRN IV PUSH 02/13/17 02:30 (Duoneb Neb) 1 ampule Q2HR NEB PRN INH 02/13/17 02:30 Miscellaneous Information 1 Q361D XX 02/13/17 02:30 02/13/17 02:30 (Chlorhexidine 2% Cloth) 3 pack Taper DAILY@04 TOP 02/13/17 04:00 02/09/18 03:59 (Chlorhexidine 2% Cloth) 3 pack UNSCH PRN TOP 02/13/17 02:30 (Brea-Colace) 1 tab BID PO 02/13/17 09:00 02/14/17 07:35 (Milk Of Magnesia Liq) 30 ml Q12H PRN PO 02/13/17 02:30 (Senokot) 17.2 mg Q12H PRN PO 02/13/17 02:30 (Dulcolax Supp) 10 mg DAILY PRN RECTAL 02/13/17 02:30 (Lactulose Liq) 30 ml DAILY PRN PO 02/13/17 02:30 (Apresoline Inj) 20 mg Q3H PRN IV PUSH 02/13/17 13:30 02/15/17 01:49 (Trandate Inj) 20 mg Q3H PRN IV PUSH 02/13/17 13:30 02/15/17 00:33 (Prinivil) 5 mg Q12HR PO 02/14/17 09:30 02/14/17 09:30 (Habitrol 21 Mg Patch.24 Hr) 1 patch DAILY T-DERMAL 02/14/17 11:00 02/14/17 11:00 Miscellaneous Information 1 DAILY T-DERMAL 02/15/17 09:00 (Aspirin Supp) 300 mg DAILY RECTAL 02/14/17 21:15 02/14/17 21:51 Family History No family history of early stroke Social History Denies tobacco, alcohol, or illicit drug abuse Physical Exam Vital Signs Vital Signs Date Time Temp Pulse Resp B/P (MAP) Pulse Ox O2 Delivery O2 Flow Rate FiO2 02/15/17 06:00 87 02/15/17 04:07 18 02/15/17 04:00 98.4 97 18 171/74 (106) 95 02/15/17 04:00 97 02/15/17 02:00 84 02/15/17 00:00 90 02/15/17 00:00 98.0 90 21 192/82 (118) 94 02/14/17 22:00 89 02/14/17 20:00 98.4 90 18 184/81 (115) 96 02/14/17 20:00 96 Bi-Pap 02/14/17 20:00 90 02/14/17 19:00 98 Nasal Cannula 3.00 02/14/17 18:00 90 02/14/17 16:00 81 02/14/17 16:00 97.6 86 22 161/72 (101) 98 02/14/17 14:00 80 02/14/17 12:00 97.9 80 17 161/72 (101) 96 02/14/17 12:00 81 02/14/17 10:00 87 02/14/17 08:00 97.7 74 22 183/84 (117) 96 02/14/17 08:00 74 Physical Exam GENERAL: Well-nourished, well-developed patient. SKIN: Warm and dry. HEAD: Normocephalic. EYES: No scleral icterus. No injection or drainage. NECK: Supple, trachea midline. No JVD or lymphadenopathy. CARDIOVASCULAR: Regular rate and rhythm without murmurs, gallops, or rubs. RESPIRATORY: Breath sounds equal bilaterally. No accessory muscle use. GASTROINTESTINAL: Abdomen soft, non-tender, nondistended. EXTREMITIES: No cyanosis, or edema. 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 This is possibly embolic material which is become trapped at this location versus focal stenosis. Of note, there is a widely patent anterior communicating. The anterior and middle cerebral branches on the right appear widely patent. Jose Steiner MD Head CT 02/14/17 0000 Signed Impressions: Service Date/Time: January 19:12 - CONCLUSION: Persistent low-density/infarction at the right frontal and anterior parietal lobes. Gerard Donovan MD Brain MRI 02/14/17 0000 Signed Impressions: Service Date/Time: January 14:38 - CONCLUSION: 1. Acute to subacute areas of infarction in the right middle cerebral artery territory. 2. No acute hemorrhage, mass effect or midline shift. Stephen Lott MD Assessment and Plan Problem List: (1) Stroke ICD Codes: I63.9 - Cerebral infarction, unspecified Plan: Acute Stroke r/o Cardioembolic origin. No tachy-bradyarrhythmias on EKG. TTE unremarkable. Agree with SARA. Plan: Keep NPO SARA today Anticoagulation per Neurology Thank you for the opportunity to take part in the care of this patient Case discuss with Neurology Chuy Arguelles MD Feb 15, 2017 07:23
--- NOTE | 2017-02-15 07:26 | HHI.CCPN ---
Subjective Remarks/Hospital Course 51-year-old female with a past medical history of hypertension presents with left-sided weakness left facial droop, altered mental status. Symptoms started at 2044. Patient had GI upset symptoms for the last 3-4 days including nausea, vomiting, diarrhea. Her brought her to the emergency room for the gastric enteritis symptoms however in route patient presented with left sided weakness that progressively got worse to the point he had to left her off the car to the emergency room wheelchair. Was evaluated by neurologist general hardware salesperson and decision was made to administer TPA. 02/14: CT Head with unchanged right frontal lobe infarct. Moderate hypertension controlled with prn. Add lisinopril to lopressor (home med). New tremor left side. For MRI today. 02/15: Completed right MCA distribution CVA. Headache and back spasms persist. Anxious and not sleeping. Objective Vital Signs Date Time Temp Pulse Resp B/P (MAP) Pulse Ox O2 Delivery O2 Flow Rate FiO2 02/15/17 06:00 87 02/15/17 04:07 18 02/15/17 04:00 98.4 171/74 (106) 95 02/14/17 20:00 Bi-Pap 02/14/17 19:00 3.00 02/13/17 20:20 21 Intake and Output 02/15/17 02/15/17 02/16/17 08:00 16:00 00:00 Output Total 500 ml Balance -500 ml Result Diagram: 02/14/17 0412 02/14/17 041 Objective Remarks General: Patient is alert awake and oriented 3 HEAD: Atraumatic. Normocephalic. EYES: Pupils equal and round. No scleral icterus. No injection or drainage. ENT: No nasal bleeding or discharge. Mucous membranes pink and moist. NECK: Trachea midline. Airway widely patent. CARDIOVASCULAR: Regular rate and rhythm. No murmur appreciated. No JVD. RESPIRATORY: No accessory muscle use. Clear to auscultation. Breath sounds equal bilaterally. Comfortable. GASTROINTESTINAL: Abdomen soft, non-tender, nondistended. Benign. MUSCULOSKELETAL: No obvious deformities. No clubbing. No cyanosis. No edema. NEUROLOGICAL: Awake and alert. Persistent eft-sided weakness and left facial droop and mild slurring of speech, has waxed and waned but clearly a fixed deficit. A/P Assessment and Plan Acute CVA - Status post TPA administration 02/12 in [place]. - Neuro checks every 2 hour - Management per neurology - PT and OT - SBP goal less than 180 Hypertension - Labetalol and hydralazine when necessary to keep SBP less than 180 Dyslipidemia - Simvastatin GERD - IV Pepcid twice a day DVT GI prophylaxis - Teds SCDs - No pharmacological DVT prophylaxis until 24 hours after TPA administration - Pepcid Overall impression: Fixed neuro deficit s/p ischemic CVA. Needs better BP control. Lorenzo Rodríguez MD Feb 15, 2017 07:26
--- NOTE | 2017-02-15 07:39 | HHI.PR ---
Review/Management Daily Summary this am she is awake and conversant better than last night per speech seems simlar to yest at time of my eval mra showing severe stenosis vs occlusion right ica cavernous level, this was not present on initial CTA neck 02/12, will review with neuro radiology esr 7, pending hypercoag profile discussed with dr Pili person and hope to have SARA today to determine presence or not of heart thrombus, considering anticoagulation some recent leg pain per , prior to admission, check for DVT, spoke to RN ok to use some pain med for back spasming and also mild sedation for sleep acceptablr hob remains flat for now and try to keep bp up to 150-190 systolic discussed with her one of my partners will cover weekend Subjective Subjective Comments last evening she developed worsening of speech and more droopiness left some prather yesterday a lot of back spasming Active Medications Current Medications Medications (Trade) Dose Ordered Sig/Silas Route Start Time Stop Time Status Last Admin (Lopressor) 50 mg BID PO 02/13/17 09:00 02/14/17 07:34 (Pravachol) 80 mg HS PO 02/13/17 21:00 02/13/17 20:04 Sodium Chloride 1,000 ml @ 84 mls/hr [id number] IV 02/13/17 02:22 02/15/17 02:50 (NS Flush) 2 ml UNSCH PRN IV FLUSH 02/13/17 02:30 (NS Flush) 2 ml BID IV FLUSH 02/13/17 09:00 02/14/17 22:10 (Tylenol) 650 mg Q6H PRN PO 02/13/17 02:30 02/15/17 03:07 (Pepcid Inj) 20 mg Q12HR IV PUSH 02/13/17 09:00 02/14/17 22:31 (Zofran Inj) 4 mg Q6H PRN IV PUSH 02/13/17 02:30 (Duoneb Neb) 1 ampule Q2HR NEB PRN INH 02/13/17 02:30 Miscellaneous Information 1 Q361D XX 02/13/17 02:30 02/13/17 02:30 (Chlorhexidine 2% Cloth) 3 pack Taper DAILY@04 TOP 02/13/17 04:00 02/09/18 03:59 (Chlorhexidine 2% Cloth) 3 pack UNSCH PRN TOP 02/13/17 02:30 (Brea-Colace) 1 tab BID PO 02/13/17 09:00 02/14/17 07:35 (Milk Of Magnesia Liq) 30 ml Q12H PRN PO 02/13/17 02:30 (Senokot) 17.2 mg Q12H PRN PO 02/13/17 02:30 (Dulcolax Supp) 10 mg DAILY PRN RECTAL 02/13/17 02:30 (Lactulose Liq) 30 ml DAILY PRN PO 02/13/17 02:30 (Apresoline Inj) 20 mg Q3H PRN IV PUSH 02/13/17 13:30 02/15/17 01:49 (Trandate Inj) 20 mg Q3H PRN IV PUSH 02/13/17 13:30 02/15/17 00:33 (Prinivil) 5 mg Q12HR PO 02/14/17 09:30 02/14/17 09:30 (Habitrol 21 Mg Patch.24 Hr) 1 patch DAILY T-DERMAL 02/14/17 11:00 02/14/17 11:00 Miscellaneous Information 1 DAILY T-DERMAL 02/15/17 09:00 (Aspirin Supp) 300 mg DAILY RECTAL 02/14/17 21:15 02/14/17 21:51 (Xanax) 0.5 mg Q8H PRN PO 02/15/17 07:30 UNV ([place] 5-325 Mg) 1 tab Q6H PRN PO 02/15/17 07:30 UNV Allergies Allergies Coded Allergies Sulfa (Sulfonamide Antibiotics) (Verified Allergy, Unknown, 02/12/17) Exam I&O / VS Vital Signs Date Time Temp Pulse Resp B/P (MAP) Pulse Ox O2 Delivery O2 Flow Rate FiO2 02/15/17 06:00 87 02/15/17 04:07 18 02/15/17 04:00 98.4 97 18 171/74 (106) 95 02/15/17 04:00 97 02/15/17 02:00 84 02/15/17 00:00 90 02/15/17 00:00 98.0 90 21 192/82 (118) 94 02/14/17 22:00 89 02/14/17 20:00 98.4 90 18 184/81 (115) 96 02/14/17 20:00 96 Bi-Pap 02/14/17 20:00 90 02/14/17 19:00 98 Nasal Cannula 3.00 02/14/17 18:00 90 02/14/17 16:00 81 02/14/17 16:00 97.6 86 22 161/72 (101) 98 02/14/17 14:00 80 02/14/17 12:00 97.9 80 17 161/72 (101) 96 02/14/17 12:00 81 02/14/17 10:00 87 02/14/17 08:00 97.7 74 22 183/84 (117) 96 02/14/17 08:00 74 Objective Radiology Results Last 48 hours Impressions Head Magnetic Resonance Angiography 02/14/17 0000 Signed Impressions: Service Date/Time: January 14:38 - CONCLUSION: The exam demonstrates a 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 This is possibly embolic material which is become trapped at this location versus focal stenosis. Of note, there is a widely patent anterior communicating. The anterior and middle cerebral branches on the right appear widely patent. Jose Steiner MD Head CT 02/14/17 0000 Signed Impressions: Service Date/Time: January 19:12 - CONCLUSION: Persistent low-density/infarction at the right frontal and anterior parietal lobes. Gerard Donovan MD Head CT 02/14/17 0000 Signed Impressions: Service Date/Time: January 07:57 - CONCLUSION: Unchanged right MCA territory infarction. No hemorrhage. Farooq Saldana Jr., MD Brain MRI 02/14/17 0000 Signed Impressions: Service Date/Time: January 14:38 - CONCLUSION: 1. Acute to subacute areas of infarction in the right middle cerebral artery territory. 2. No acute hemorrhage, mass effect or midline shift. Stephen Lott MD Micro and Labs Laboratory Tests Test 02/14/17 21:28 02/15/17 04:48 Triglycerides Level 165 Cholesterol Level 154 LDL Cholesterol 82 HDL Cholesterol 38.8 Cholesterol/HDL Ratio 3.96 Erythrocyte Sedimentation Rate 7 Mio Lozano MD Feb 15, 2017 07:39
[2017-02-15] MEDS: FAMOTIDINE 20 MG/2 ML VIAL IV PUSH SCH ×2 (08:01→19:56)
[2017-02-15] MEDS: SODIUM CHLORIDE 0.9% FLUSH 10 ML FLUSH IV FLUSH SCH ×2 (08:01→19:56)
[2017-02-15] MEDS: METOPROLOL TARTRATE 50 MG TAB PO SCH ×2 (08:01→19:56)
[2017-02-15] MEDS: DOCUSATE SODIUM 50 MG/SENNA 8.6 MG TAB PO SCH ×2 (08:02→19:56)
[2017-02-15] MEDS: LISINOPRIL 5 MG TAB PO SCH ×2 (08:02→19:56)
[2017-02-15] MEDS: ASPIRIN 300 MG SUPP RECTAL SCH (08:02)
[2017-02-15] MEDS: NICOTINE 21 MG/24 HR PATCH T-DERMAL SCH (08:02)
[2017-02-15] MEDS: REMOVE OLD PATCH T-DERMAL SCH (08:24)
--- NOTE | 2017-02-15 09:40 | RADRPT ---
EXAM DATE/TIME: 02/15/2017 08:09 [facility] COMPARISON: No previous studies available for comparison. INDICATIONS : Bilateral leg swelling. MEDICAL HISTORY : Hypertension. Sleep apnea. Cerebrovascular accident. SURGICAL HISTORY : Right nephrectomy. ENCOUNTER: Initial ACUITY: 1 day PAIN SCORE: 2/10 LOCATION: Bilateral legs. TECHNIQUE: Venous ultrasound of the left and right leg was performed from the inguinal ligament to the proximal calf. Real-time, color Doppler and spectral tracing, compression and augmentation techniques were us ed. FINDINGS: RIGHT LEG: There is normal compressibility of the deep venous system from the inguinal region to the proximal ca lf. No echogenic clot is seen in the lumen of the common femoral, femoral, popliteal, and posterior tibial veins. There is a normal response of the venous system to proximal and distal augmentation an d respiration. LEFT LEG: There is normal compressibility of the deep venous system from the inguinal region to the proximal ca lf. No echogenic clot is seen in the lumen of the common femoral, femoral, popliteal, and posterior tibial veins. There is a normal response of the venous system to proximal and distal augmentation an d respiration. CONCLUSION: Normal examination. Gerard Hays MD on February 15, 2017 at 9:38 Board Certified Radiologist. This report was verified electronically.
[2017-02-15] MEDS: ALPRAZolam 0.5 MG TAB PO PRN ×2 (10:17→21:11)
[2017-02-15] MEDS: ACETAMINOPHEN/HYDROcodone 325 MG/5 MG TAB PO PRN ×2 (13:00→19:00)
--- NOTE | 2017-02-15 15:54 | HHI.PR ---
Review/Management Daily Summary 02/15 this am she is awake and conversant better than last night per speech seems simlar to yest at time of my eval mra showing severe stenosis vs occlusion right ica cavernous level, this was not present on initial CTA neck 02/12, will review with neuro radiology esr 7, pending hypercoag profile discussed with dr Pili person and hope to have SARA today to determine presence or not of heart thrombus, considering anticoagulation some recent leg pain per , prior to admission, check for DVT, spoke to RN ok to use some pain med for back spasming and also mild sedation for sleep acceptablr hob remains flat for now and try to keep bp up to 150-190 systolic discussed with her one of my partners will cover weekend 02/[address] Pili RUIZ negative also discussed with dr Ryley Steiner, the CT Angio may have missed the carotid cavernous dx because of surrounding bony artifact at that level, therefore the MRA finding likely reflects defect from the beginning rather than some new clot/embolism continue ASA and also add plavix for 4 weeks Subjective Active Medications Current Medications Medications (Trade) Dose Ordered Sig/Silas Route Start Time Stop Time Status Last Admin (Lopressor) 50 mg BID PO 02/13/17 09:00 02/15/17 08:01 (Pravachol) 80 mg HS PO 02/13/17 21:00 02/13/17 20:04 Sodium Chloride 1,000 ml @ 84 mls/hr [id number] IV 02/13/17 02:22 02/15/17 13:57 (NS Flush) 2 ml UNSCH PRN IV FLUSH 02/13/17 02:30 (NS Flush) 2 ml BID IV FLUSH 02/13/17 09:00 02/15/17 08:01 (Tylenol) 650 mg Q6H PRN PO 02/13/17 02:30 02/15/17 03:07 (Pepcid Inj) 20 mg Q12HR IV PUSH 02/13/17 09:00 02/15/17 08:01 (Zofran Inj) 4 mg Q6H PRN IV PUSH 02/13/17 02:30 (Duoneb Neb) 1 ampule Q2HR NEB PRN INH 02/13/17 02:30 Miscellaneous Information 1 Q361D XX 02/13/17 02:30 02/13/17 02:30 (Chlorhexidine 2% Cloth) 3 pack Taper DAILY@04 TOP 02/13/17 04:00 02/09/18 03:59 (Chlorhexidine 2% Cloth) 3 pack UNSCH PRN TOP 02/13/17 02:30 (Brea-Colace) 1 tab BID PO 02/13/17 09:00 02/15/17 08:02 (Milk Of Magnesia Liq) 30 ml Q12H PRN PO 02/13/17 02:30 (Senokot) 17.2 mg Q12H PRN PO 02/13/17 02:30 (Dulcolax Supp) 10 mg DAILY PRN RECTAL 02/13/17 02:30 (Lactulose Liq) 30 ml DAILY PRN PO 02/13/17 02:30 (Apresoline Inj) 20 mg Q3H PRN IV PUSH 02/13/17 13:30 02/15/17 01:49 (Trandate Inj) 20 mg Q3H PRN IV PUSH 02/13/17 13:30 02/15/17 00:33 (Prinivil) 5 mg Q12HR PO 02/14/17 09:30 02/15/17 08:02 (Habitrol 21 Mg Patch.24 Hr) 1 patch DAILY T-DERMAL 02/14/17 11:00 02/15/17 08:02 Miscellaneous Information 1 DAILY T-DERMAL 02/15/17 09:00 02/15/17 08:24 (Aspirin Supp) 300 mg DAILY RECTAL 02/14/17 21:15 02/14/17 21:51 (Xanax) 0.5 mg Q8H PRN PO 02/15/17 07:30 02/15/17 10:17 ([place] 5-325 Mg) 1 tab Q6H PRN PO 02/15/17 07:30 02/15/17 13:00 Allergies Allergies Coded Allergies Sulfa (Sulfonamide Antibiotics) (Verified Allergy, Unknown, 02/12/17) Exam I&O / VS Vital Signs Date Time Temp Pulse Resp B/P (MAP) Pulse Ox O2 Delivery O2 Flow Rate FiO2 02/15/17 14:05 17 02/15/17 14:00 73 02/15/17 12:00 86 02/15/17 12:00 98.3 73 19 175/79 (111) 95 02/15/17 10:00 73 02/15/17 08:00 98.8 80 23 185/83 (117) 95 02/15/17 08:00 78 02/15/17 07:00 98 Nasal Cannula 3.00 02/15/17 06:00 87 02/15/17 04:07 18 02/15/17 04:00 98.4 97 18 171/74 (106) 95 02/15/17 04:00 97 02/15/17 02:00 84 02/15/17 00:00 90 02/15/17 00:00 98.0 90 21 192/82 (118) 94 02/14/17 22:00 89 02/14/17 20:00 98.4 90 18 184/81 (115) 96 02/14/17 20:00 96 Bi-Pap 02/14/17 20:00 90 02/14/17 19:00 98 Nasal Cannula 3.00 02/14/17 18:00 90 02/14/17 16:00 81 02/14/17 16:00 97.6 86 22 161/72 (101) 98 Objective Micro and Labs Laboratory Tests Test 02/14/17 21:28 02/15/17 04:48 Triglycerides Level 165 Cholesterol Level 154 LDL Cholesterol 82 HDL Cholesterol 38.8 Cholesterol/HDL Ratio 3.96 Erythrocyte Sedimentation Rate 7 Mio Lozano MD Feb 15, 2017 15:54
[2017-02-15] MEDS: CLOPIDOGREL 75 MG TAB PO SCH (16:00)
[2017-02-15] MEDS: PRAVASTATIN SOD 80 MG TAB PO SCH (19:56)
--- NOTE | 2017-02-15 22:07 | MG ---
cc: EYAD SALEH MD Lab No: [id number] Date: 02/15/17 Age: 51 Sex: F Race: 1965 A 51 year old, history of weakness, stroke, mental status changes. A 4-8 Hz posterior rhythm, 20-50 microvolts. Fast frequency, myogenic artifact in the frontal channels. Attenuation slowing of background transition into drowsy state. Mild asymmetric right hemispheric slowing with some increased delta overlay. Mild driving with photic stimulation. Single lead EKG showing sinus rhythm. INTERPRETATION Mild asymmetric right hemispheric slowing and drowsy state. Clinical correlation. MD LISA Uribe/ /9:34 PM /9:52 PM
[2017-02-16] VITALS (9 sets, daily range): BP systolic 172–190; BP diastolic 74–86; PULSE 71–99; RESP 16–24; TEMP 97.7–98.9; O2SAT 92–96
[2017-02-16] MEDS: SODIUM CHLOR 0.9% 1000 ML INJ 1,000 ML IV SCH (01:52)
[2017-02-16] MEDS: CHLORHEXIDINE GLUCONATE 2 % 1 PACK (2 CLOTHS) TOP SCH (04:00)
[2017-02-16 05:03] LABS: BICARBONATE 23.7 MEQ/L (21.0-32.0); POTASSIUM 3.9 MEQ/L (3.5-5.1)
[2017-02-16] MEDS: FAMOTIDINE 20 MG TAB PO SCH ×2 (08:11→20:35)
[2017-02-16] MEDS: METOPROLOL TARTRATE 50 MG TAB PO SCH ×3 (08:11→17:49)
[2017-02-16] MEDS: LISINOPRIL 5 MG TAB PO SCH ×2 (08:11→20:34)
[2017-02-16] MEDS: CLOPIDOGREL 75 MG TAB PO SCH (08:12)
[2017-02-16] MEDS: DOCUSATE SODIUM 50 MG/SENNA 8.6 MG TAB PO SCH ×2 (08:12→20:36)
[2017-02-16] MEDS: ASPIRIN 300 MG SUPP RECTAL SCH (08:12)
[2017-02-16] MEDS: REMOVE OLD PATCH T-DERMAL SCH (08:12)
[2017-02-16] MEDS: NICOTINE 21 MG/24 HR PATCH T-DERMAL SCH (08:13)
[2017-02-16] MEDS: SODIUM CHLORIDE 0.9% FLUSH 10 ML FLUSH IV FLUSH SCH ×2 (08:13→20:34)
--- NOTE | 2017-02-16 09:16 | HHI.CCPN ---
Subjective Remarks/Hospital Course 51-year-old female with a past medical history of hypertension presents with left-sided weakness left facial droop, altered mental status. Symptoms started at 2044. Patient had GI upset symptoms for the last 3-4 days including nausea, vomiting, diarrhea. Her brought her to the emergency room for the gastric enteritis symptoms however in route patient presented with left sided weakness that progressively got worse to the point he had to left her off the car to the emergency room wheelchair. Was evaluated by neurologist stone mason and decision was made to administer TPA. 02/14: CT Head with unchanged right frontal lobe infarct. Moderate hypertension controlled with prn. Add lisinopril to lopressor (home med). New tremor left side. For MRI today. 02/15: Completed right MCA distribution CVA. Headache and back spasms persist. Anxious and not sleeping. 02/16: headache improved. has multiple questions for neurology about overall prognosis and duration of treatment. BP under better control and in target. SARA negative per neurology report. Objective Vital Signs Date Time Temp Pulse Resp B/P (MAP) Pulse Ox O2 Delivery O2 Flow Rate FiO2 02/16/17 07:00 93 Bi-Pap 3.00 02/16/17 06:00 98.6 71 17 174/74 (107) 02/13/17 20:20 21 Intake and Output 02/16/17 02/16/17 02/17/17 08:00 16:00 00:00 Output Total 800 ml Balance -800 ml Result Diagram: 02/14/17 0412 02/16/17 0420 Objective Remarks General: Patient is alert awake and oriented 3 HEAD: Atraumatic. Normocephalic. EYES: Pupils equal and round. No scleral icterus. No injection or drainage. ENT: No nasal bleeding or discharge. Mucous membranes pink and moist. NECK: Trachea midline. Airway widely patent. CARDIOVASCULAR: Regular rate and rhythm. No JVD. RESPIRATORY: No accessory muscle use. equal chest rise. Comfortable. on room air on my eval. GASTROINTESTINAL: Abdomen soft, non-tender, nondistended. no guarding. MUSCULOSKELETAL: No obvious deformities. No clubbing. No cyanosis. No edema. NEUROLOGICAL: Awake and alert. Persistent left-sided weakness and left facial droop and mild slurring of speech, has waxed and waned but clearly a fixed deficit. A/P Assessment and Plan Assessment: 51yF s/p right MCA CVA, clinically stable. neuro exam has been stable. will need to start working on stroke rehab placement. Acute CVA - Status post TPA administration 02/12 in [place]. - Neuro checks every 2 hour - Management per neurology - PT and OT - SBP goal less than 180 Hypertension - Labetalol and hydralazine when necessary to keep SBP less than 180 - increase metoprolol to 50mg TID (from BID) - add a prn hydralazine 50mg po q8h if not at goal. Dyslipidemia - Simvastatin GERD - PO Pepcid twice a day DVT GI prophylaxis - Teds SCDs - ASA and Plavix for stroke. will leave DVT prophylaxis up to neurology: risk/ benefit of triple anticoag. - Pepcid Overall impression: Fixed neuro deficit s/p ischemic CVA. on room air. needs stroke rehab. can leave ICU. I have discussed the case with Dr. Oleary who will see the patient today. I have also spoken with Dr. Galindo who will assume care on the floor, who will also see the patient today. I have spoken with case management about the patient 's FMLA/short-term disability paperwork as well as stroke rehab initiation work- up. Discussed with bedside RN and and patient at length regarding her ongoing care. Sonny Chavez MD Feb 16, 2017 09:16
--- NOTE | 2017-02-16 11:16 | HHI.PR ---
Review/Management Diagnosis/Plan: (1) Acute ischemic right MCA stroke ICD Codes: I63.511 - Cerebral infarction due to unspecified occlusion or stenosis of right middle cerebral artery Status: Acute Plan: ica atherosclerotic dz with artery to artery emboli tob 1ppd x >30 years-per spouse, + htn recs repeat mri/mra brain therapy hep sub q for dvt prevention d/w ccm d/w spouse at length- large rt mca stroke (2) Tobacco consumption ICD Codes: Z72.0 - Tobacco use Status: Chronic (3) HTN (hypertension) ICD Codes: I10 - Essential (primary) hypertension (4) Stroke ICD Codes: I63.9 - Cerebral infarction, unspecified Daily Summary 02/15 this am she is awake and conversant better than last night per speech seems simlar to yest at time of my eval mra showing severe stenosis vs occlusion right ica cavernous level, this was not present on initial CTA neck 02/12, will review with neuro radiology esr 7, pending hypercoag profile discussed with dr Pili person and hope to have SARA today to determine presence or not of heart thrombus, considering anticoagulation some recent leg pain per , prior to admission, check for DVT, spoke to RN ok to use some pain med for back spasming and also mild sedation for sleep acceptablr hob remains flat for now and try to keep bp up to 150-190 systolic discussed with her one of my partners will cover weekend 02/[address] Pili RUIZ negative also discussed with dr Ryley Steiner, the CT Angio may have missed the carotid cavernous dx because of surrounding bony artifact at that level, therefore the MRA finding likely reflects defect from the beginning rather than some new clot/embolism continue ASA and also add plavix for 4 weeks Subjective Subjective Comments xcover spouse feels vision worse No headache No chest pain No dyspnea Active Medications Current Medications Medications (Trade) Dose Ordered Sig/Silas Route Start Time Stop Time Status Last Admin (Pravachol) 80 mg HS PO 02/13/17 21:00 02/15/17 19:56 (NS Flush) 2 ml UNSCH PRN IV FLUSH 02/13/17 02:30 (NS Flush) 2 ml BID IV FLUSH 02/13/17 09:00 02/16/17 08:13 (Tylenol) 650 mg Q6H PRN PO 02/13/17 02:30 02/15/17 03:07 (Zofran Inj) 4 mg Q6H PRN IV PUSH 02/13/17 02:30 (Duoneb Neb) 1 ampule Q2HR NEB PRN INH 02/13/17 02:30 Miscellaneous Information 1 Q361D XX 02/13/17 02:30 02/13/17 02:30 (Chlorhexidine 2% Cloth) 3 pack Taper DAILY@04 TOP 02/13/17 04:00 02/09/18 03:59 (Chlorhexidine 2% Cloth) 3 pack UNSCH PRN TOP 02/13/17 02:30 (Brea-Colace) 1 tab BID PO 02/13/17 09:00 02/16/17 08:12 (Milk Of Magnesia Liq) 30 ml Q12H PRN PO 02/13/17 02:30 (Senokot) 17.2 mg Q12H PRN PO 02/13/17 02:30 (Dulcolax Supp) 10 mg DAILY PRN RECTAL 02/13/17 02:30 (Lactulose Liq) 30 ml DAILY PRN PO 02/13/17 02:30 (Trandate Inj) 20 mg Q3H PRN IV PUSH 02/13/17 13:30 02/15/17 17:13 (Prinivil) 5 mg Q12HR PO 02/14/17 09:30 02/16/17 08:11 (Habitrol 21 Mg Patch.24 Hr) 1 patch DAILY T-DERMAL 02/14/17 11:00 02/16/17 08:13 Miscellaneous Information 1 DAILY T-DERMAL 02/15/17 09:00 02/16/17 08:12 (Aspirin Supp) 300 mg DAILY RECTAL 02/14/17 21:15 02/16/17 08:12 (Xanax) 0.5 mg Q8H PRN PO 02/15/17 07:30 02/15/17 21:11 ([place] 5-325 Mg) 1 tab Q6H PRN PO 02/15/17 07:30 02/15/17 19:00 (Plavix) 75 mg DAILY PO 02/15/17 16:00 02/16/17 08:12 (Lopressor) 50 mg TID PO 02/16/17 09:00 02/16/17 08:11 (Pepcid) 20 mg BID PO 02/16/17 09:00 02/16/17 08:11 (Apresoline) 50 mg Q8H PRN PO 02/16/17 06:45 Allergies Allergies Coded Allergies Sulfa (Sulfonamide Antibiotics) (Verified Allergy, Unknown, 02/12/17) Review of Systems All other ROS: ROS reviewed as documented in chart Exam I&O / VS 02/16/17 02/16/17 02/17/17 15:00 23:00 07:00 Output Total 400 ml Balance -400 ml Output Urine Total 400 ml Vital Signs Date Time Temp Pulse Resp B/P (MAP) Pulse Ox O2 Delivery O2 Flow Rate FiO2 02/16/17 10:42 98.4 83 18 190/86 (120) 95 02/16/17 08:00 98.4 99 24 172/79 (110) 92 02/16/17 08:00 99 02/16/17 07:00 93 Room Air 3.00 02/16/17 06:00 98.6 71 17 174/74 (107) 94 02/16/17 06:00 86 02/16/17 04:00 74 02/16/17 02:00 74 02/16/17 00:00 98.1 71 16 174/74 (107) 94 02/16/17 00:00 74 02/15/17 22:00 72 02/15/17 20:00 87 02/15/17 20:00 16 02/15/17 20:00 98.2 87 18 159/70 (99) 96 02/15/17 19:00 98 Nasal Cannula 3.00 02/15/17 18:00 78 02/15/17 16:00 97.9 77 16 178/79 (112) 99 02/15/17 16:00 75 02/15/17 14:00 73 02/15/17 12:00 86 02/15/17 12:00 98.3 73 19 175/79 (111) 95 General: Alert and Oriented, No acute distress Eye: EOMI Respiratory: Non-labored respirations Neurologic: Alert Psychiatric: Cooperative Exam Comments ox 3, follows, rt gaze preference, ou 3-2mm, reduced left nlf, left hemiplegia, left babinski Objective Micro and Labs Laboratory Tests Test 02/16/17 04:20 Blood Urea Nitrogen 13 Creatinine 0.68 Random Glucose 100 Calcium Level 7.9 Sodium Level 136 Potassium Level 3.9 Chloride Level 106 Carbon Dioxide Level 23.7 Anion Gap 6 Estimat Glomerular Filtration Rate 91 Problem Qualifiers (1) HTN (hypertension): Qualified Codes: I10 - Essential (primary) hypertension Naeem Oleary MD Feb 16, 2017 11:16
--- NOTE | 2017-02-16 12:22 | RADRPT ---
EXAM DATE/TIME: 02/16/2017 11:45 [facility] COMPARISON: CT BRAIN W/O CONTRAST, February 14, 2017, 19:12. MRI BRAIN W/O CONTRAST, February 14, 2017, 14:38. INDICATIONS : CVA. MEDICAL HISTORY : Hypertension. SURGICAL HISTORY : Nephrectomy. ENCOUNTER: Initial ACUITY: 3 day PAIN SCORE: 0/10 LOCATION: cranial TECHNIQUE: Multiplanar, multisequence MRI of the brain was performed without contrast. FINDINGS: CEREBRUM: Right sided infarcts in the temporal parietal and posterior right parietal lobes are unchanged. No si gnificant midline shift or mass effect. No definite acute hemorrhage. Ventricles remain patent. WHITE MATTER: No significant signal abnormalities are seen in the white matter. POSTERIOR FOSSA: The cerebellum and brainstem are intact. The 4th ventricle is midline. The cerebellopontine angle is unremarkable. The cerebellar tonsils are normal in position. DIFFUSION IMAGING: Areas of restricted diffusion are seen. Consistent with acute infarction. EXTRACRANIAL: The visualized portions of the orbits and paranasal sinuses are unremarkable. CONCLUSION: Right-sided acute infarctions are unchanged. No midline shift or mass effect. Bruce Doshi MD on February 16, 2017 at 12:18 Board Certified Radiologist. This report was verified electronically.
[2017-02-16] MEDS: ACETAMINOPHEN/HYDROcodone 325 MG/5 MG TAB PO PRN ×2 (12:40→20:36)
--- NOTE | 2017-02-16 13:03 | RADRPT ---
EXAM DATE/TIME: 02/16/2017 11:45 [facility] COMPARISON: MRA BRAIN W/O CONTRAST, February 14, 2017, 14:38. INDICATIONS : CVA. MEDICAL HISTORY : Hypertension. SURGICAL HISTORY : Nephrectomy. ENCOUNTER: Initial ACUITY: 3 day PAIN SCORE: 0/10 LOCATION: cranial Please note a normal MRA of the brain does not entirely exclude the possibility of a small aneurysm, nor the possibility of distal intracranial vessel disease. TECHNIQUE: 3D time of flight MRA was performed. Source images, multiplanar STS MIP, and 3D volume MIP reconstru ctions were reviewed. FINDINGS: There is focal high-grade stenosis of the distal right internal carotid artery again seen. Middle, an terior and posterior subl arteries are patent. No thrombus or critical stenosis. There is eccentric p laque within the mid basilar artery causing mild to moderate narrowing. CONCLUSION: 1. Focal high-grade stenosis distal right internal carotid artery again seen. 2. There there is plaque or possible minimal thrombus in the mid basilar artery causing mild to moder ate narrowing. This is unchanged. Bruce Doshi MD on February 16, 2017 at 12:50 Board Certified Radiologist. This report was verified electronically.
--- NOTE | 2017-02-16 13:47 | HHI.PR ---
Addendum to Inpatient Note Addendum Reason: Additional Documentation Additional Information Patient seen and examined. Will continue to monitor BP. noted patient only has one kidney. Complained of constipation' Exam: left sided hemiparesis DW RN. Patient just received antihypertensive. Continue to monitor BP. Stool softeners and laxative as needed. Discussed with RN. Will follow tomorrow. Neurology following. Will need rehab. ?[facility]. Laila Galindo MD Feb 16, 2017 13:47
--- NOTE | 2017-02-16 18:29 | ECHRPT ---
Indication: CVA/TIA CONCLUSIONS Normal LV since and function No vegetations or masses No intracardiac shunt No significant valvulopathies ENMANUEL normal No pericardial effusion BP: / HR: Rhythm: Technical Quality: Medications Complications Proc. Components Chuy Arguelles MD (Electronically Signed) Final Date:16 February 2017 18:28
[2017-02-16] MEDS: PRAVASTATIN SOD 80 MG TAB PO SCH (20:36)
[2017-02-16] MEDS: HEPARIN SODIUM - SQ 10,000 UNITS/ML VIAL SQ SCH (20:37)
[2017-02-16] MEDS: hydrALAZINE HCL 50 MG TAB PO PRN (21:19)
[2017-02-17] VITALS (7 sets, daily range): BP systolic 158–202; BP diastolic 72–91; PULSE 72–104; RESP 16–20; TEMP 97.3–98.9; O2SAT 93–97
[2017-02-17] MEDS: CHLORHEXIDINE GLUCONATE 2 % 1 PACK (2 CLOTHS) TOP SCH (03:04)
[2017-02-17] MEDS: hydrALAZINE HCL 50 MG TAB PO PRN (05:24)
[2017-02-17] MEDS: ACETAMINOPHEN/HYDROcodone 325 MG/5 MG TAB PO PRN ×3 (05:25→17:20)
[2017-02-17] MEDS: ALPRAZolam 0.5 MG TAB PO PRN ×2 (07:00→20:38)
[2017-02-17] MEDS: SODIUM CHLORIDE 0.9% FLUSH 10 ML FLUSH IV FLUSH SCH ×2 (08:45→20:40)
[2017-02-17] MEDS: CLOPIDOGREL 75 MG TAB PO SCH (08:57)
[2017-02-17] MEDS: LISINOPRIL 5 MG TAB PO SCH ×2 (08:57→20:38)
[2017-02-17] MEDS: FAMOTIDINE 20 MG TAB PO SCH ×2 (08:57→20:39)
[2017-02-17] MEDS: METOPROLOL TARTRATE 50 MG TAB PO SCH ×3 (08:57→17:19)
[2017-02-17] MEDS: DOCUSATE SODIUM 50 MG/SENNA 8.6 MG TAB PO SCH ×2 (08:57→20:38)
[2017-02-17] MEDS: ASPIRIN 300 MG SUPP RECTAL SCH (08:58)
[2017-02-17] MEDS: NICOTINE 21 MG/24 HR PATCH T-DERMAL SCH (08:58)
[2017-02-17] MEDS: REMOVE OLD PATCH T-DERMAL SCH (08:58)
[2017-02-17] MEDS: HEPARIN SODIUM - SQ 10,000 UNITS/ML VIAL SQ SCH ×2 (08:58→20:40)
[2017-02-17 09:21] LABS: HEMOGLOBIN A1a 0.7 %; HEMOGLOBIN Ao 85.5 %; HEMOGLOBIN F 0.8 %; HEMOGLOBIN P3 3.6 %
[2017-02-17] MEDS: amLODIPine BESYLATE 5 MG TAB PO SCH (09:59)
--- NOTE | 2017-02-17 11:10 | HHI.PR ---
Subjective Remarks Left-sided hemiplegia is unchanged. Patient reports she is feeling okay otherwise. Blood pressure elevated. Objective Vitals Vital Signs Date Time Temp Pulse Resp B/P (MAP) Pulse Ox O2 Delivery O2 Flow Rate FiO2 02/17/17 08:50 Nasal Cannula 2.00 02/17/17 08:00 97.7 104 16 181/77 (111) 94 02/17/17 07:03 166/77 (106) 02/17/17 04:00 98.4 96 18 202/91 (128) 93 02/17/17 00:00 98.4 89 20 190/81 (117) 95 02/16/17 20:53 95 Room Air 3.00 02/16/17 20:00 98.9 79 18 190/86 (120) 94 02/16/17 16:10 97.8 75 18 182/76 (111) 94 02/16/17 12:00 97.7 84 18 173/77 (109) 96 I/O 02/16/17 02/16/17 02/16/17 02/17/17 02/17/17 02/17/17 07:00 15:00 23:00 07:00 15:00 23:00 Intake Total 480 ml Output Total 800 ml 400 ml Balance -800 ml -400 ml 480 ml Intake Oral 480 ml Output Urine Total 800 ml 400 ml # Voids 8 7 # Bowel Movements 0 2 Result Diagram: 02/14/17 0412 02/16/17 0420 Imaging Last Impressions Head Magnetic Resonance Angiography 02/16/17 0000 Signed Impressions: Service Date/Time: Thursday, February 16, 2017 11:45 - CONCLUSION: 1. Focal high-grade stenosis distal right internal carotid artery again seen. 2. There there is plaque or possible minimal thrombus in the mid basilar artery causing mild to moderate narrowing. This is unchanged. Bruce Doshi MD Brain MRI 02/16/17 0000 Signed Impressions: Service Date/Time: Thursday, February 16, 2017 11:45 - CONCLUSION: Right- sided acute infarctions are unchanged. No midline shift or mass effect. Bruce Doshi MD Lower Extremity Ultrasound 02/15/17 0000 Signed Impressions: Service Date/Time: Wednesday, February 15, 2017 08:09 - CONCLUSION: Normal examination. Gerard Hays MD Head CT 02/14/17 0000 Signed Impressions: Service Date/Time: January 19:12 - CONCLUSION: Persistent low-density/infarction at the right frontal and anterior parietal lobes. Gerard Donovan MD Objective Remarks GENERAL: This is a well-nourished, well-developed patient, in no apparent distress. CARDIOVASCULAR: Normal rate and regular rhythm without murmurs, gallops, or rubs. RESPIRATORY: Good respiratory efforts. Breath sounds equal and clear to auscultation bilaterally. GASTROINTESTINAL: Abdomen soft, non-tender, non-distended. Normal active bowel sounds MUSCULOSKELETAL: Extremities without cyanosis, or edema. NEURO: Alert & Oriented x4 to person, place, time, situation. Left-sided hemiplegia PSYCH: Appropriate mood and affect. A/P Problem List: (1) Acute ischemic right MCA stroke ICD Code: I63.511 - Cerebral infarction due to unspecified occlusion or stenosis of right middle cerebral artery Status: Acute (2) HTN (hypertension) ICD Code: I10 - Essential (primary) hypertension (3) Tobacco consumption ICD Code: Z72.0 - Tobacco use Status: Chronic Assessment and Plan 51-year-old female admitted with a large right MCA stroke. Patient has significant left-sided hemiplegia. Acute CVA - Status post TPA administration 02/12 in [place]. - Neuro checks every 2 hours - Management per neurology - Stroke rehabilitation. PT and OT - continue ASA and Plavix - Consult [facility] Hypertension: Uncontrolled. - Increase metoprolol to 75 mg 3 times a day. Continue lisinopril 5 mg daily. Add amlodipine 5 mg daily. Will avoid nephrotoxic medications as patient only has one kidney. - Labetalol and hydralazine when necessary to keep SBP less than 180 - continue metoprolol and low dose lisinopril Dyslipidemia - Continue Simvastatin GERD - PO Pepcid twice a day DVT prophylaxis -Heparin Discharge Planning Will need inpatient rehabilitation. Problem Qualifiers (1) HTN (hypertension): Qualified Codes: I10 - Essential (primary) hypertension Laila Galindo MD Feb 17, 2017 11:10
--- NOTE | 2017-02-17 13:10 | PD.PN.STU ---
Subjective Remarks Patient's contributes to history. Eating well, but not moving left side extremities at all. Some shortness of breath overnight. On nasal canula 2 L O2. Per nurse, difficult getting out of bed, request PT consult. BPs have been running high with SBP >180 at times requiring PRN hydralazine and labetalol. Objective Vitals Vital Signs Date Time Temp Pulse Resp B/P (MAP) Pulse Ox O2 Delivery O2 Flow Rate FiO2 02/17/17 08:50 Nasal Cannula 2.00 02/17/17 08:00 97.7 104 16 181/77 (111) 94 02/17/17 07:03 166/77 (106) 02/17/17 04:00 98.4 96 18 202/91 (128) 93 02/17/17 00:00 98.4 89 20 190/81 (117) 95 02/16/17 20:53 95 Room Air 3.00 02/16/17 20:00 98.9 79 18 190/86 (120) 94 02/16/17 16:10 97.8 75 18 182/76 (111) 94 I/O 02/16/17 02/16/17 02/16/17 02/17/17 02/17/17 02/17/17 07:00 15:00 23:00 07:00 15:00 23:00 Intake Total 480 ml Output Total 800 ml 400 ml Balance -800 ml -400 ml 480 ml Intake Oral 480 ml Output Urine Total 800 ml 400 ml # Voids 8 7 # Bowel Movements 0 2 Result Diagram: 02/14/17 0412 02/16/17 0420 Imaging Last 48 hours Impressions Head Magnetic Resonance Angiography 02/16/17 0000 Signed Impressions: Service Date/Time: Thursday, February 16, 2017 11:45 - CONCLUSION: 1. Focal high-grade stenosis distal right internal carotid artery again seen. 2. There there is plaque or possible minimal thrombus in the mid basilar artery causing mild to moderate narrowing. This is unchanged. Bruce Doshi MD Brain MRI 02/16/17 0000 Signed Impressions: Service Date/Time: Thursday, February 16, 2017 11:45 - CONCLUSION: Right- sided acute infarctions are unchanged. No midline shift or mass effect. Bruce Doshi MD Objective Remarks GENERAL: Patient lying in bed, somnolent but responsive to questioning. SKIN: Warm and dry. HEAD: Atraumatic. Normocephalic. EYES: Pupils equal and round. No scleral icterus. No injection or drainage. ENT: No nasal bleeding or discharge. Mucous membranes pink and moist. NECK: Trachea midline. No JVD. CARDIOVASCULAR: Regular rate and rhythm. RESPIRATORY: No accessory muscle use. Clear to auscultation. Breath sounds equal bilaterally. GASTROINTESTINAL: Abdomen soft, non-tender, nondistended. Hepatic and splenic margins not palpable. MUSCULOSKELETAL: Extremities without clubbing, cyanosis, or edema. No obvious deformities. NEUROLOGICAL: Somnolent. Normal speech. Right side neurologically intact without abnormality. Incomplete vision loss in left eye, EOM normal, speech normal, no ptosis or facial droop. 0/5 muscle strength in L UE and LE. Medications and IVs Current Medications Metoprolol Tartrate (Lopressor) 50 mg BID PO Last administered on 02/15/17 19: 56; Start 02/13/17 at 09:00; Stop 02/16/17 at 06:42; Status DC Pravastatin Sodium (Pravachol) 80 mg HS PO Last administered on 02/16/17 20:36 ; Start 02/13/17 at 21:00 Sodium Chloride 1,000 ml @ 84 mls/hr [id number] IV Last administered on 01:52; Start 02/13/17 at 02:22; Stop 02/16/17 at 08:29; Status DC Sodium Chloride (NS Flush) 2 ml UNSCH PRN IV FLUSH FLUSH AFTER USING IV ACCESS ; Start 02/13/17 at 02:30 Sodium Chloride (NS Flush) 2 ml BID IV FLUSH Last administered on 02/17/17 08: 45; Start 02/13/17 at 09:00 Acetaminophen (Tylenol) 650 mg Q6H PRN PO PAIN 1-5 AND/OR FEVER >101F Last administered on 02/15/17 03:07; Start 02/13/17 at 02:30 Famotidine (Pepcid Inj) 20 mg Q12HR IV PUSH Last administered on 02/15/17 19: 56; Start 02/13/17 at 09:00; Stop 02/16/17 at 06:42; Status DC Ondansetron HCl (Zofran Inj) 4 mg Q6H PRN IV PUSH NAUSEA OR VOMITING; Start at 02:30 Albuterol/ Ipratropium (Duoneb Neb) 1 ampule Q2HR NEB PRN INH WHEEZING; Start 02/13/17 at 02:30 Miscellaneous Information 1 Q361D XX Last administered on 02/13/17 02:30; Start 02/13/17 at 02:30 Chlorhexidine Gluconate (Chlorhexidine 2% Cloth) 3 pack Taper DAILY@04 TOP ; Start 02/13/17 at 04:00; Stop 02/09/18 at 03:59 Chlorhexidine Gluconate (Chlorhexidine 2% Cloth) 3 pack UNSCH PRN TOP HYGIENIC CARE; Start 02/13/17 at 02:30 Senna/Docusate Sodium (Brea-Colace) 1 tab BID PO Last administered on 08:57; Start 02/13/17 at 09:00 Magnesium Hydroxide (Milk Of Magnesia Liq) 30 ml Q12H PRN PO Mild constipation ; Start 02/13/17 at 02:30 Sennosides (Senokot) 17.2 mg Q12H PRN PO Moderate constipation; Start at 02:30 Bisacodyl (Dulcolax Supp) 10 mg DAILY PRN RECTAL SEVERE CONSITIPATION Last administered on 02/16/17 13:56; Start 02/13/17 at 02:30 Lactulose (Lactulose Liq) 30 ml DAILY PRN PO SEVERE CONSITIPATION; Start 02/13 at 02:30 Pantoprazole Sodium (Protonix Inj) 40 mg ONCE ONCE IV PUSH Last administered on 02/13/17 06:15; Start 02/13/17 at 06:15; Stop 02/13/17 at 06:16; Status DC Hydralazine HCl (Apresoline Inj) 20 mg Q3H PRN IV PUSH SBP > 180 Last administered on 02/15/17 18:56; Start 02/13/17 at 13:30; Stop 02/16/17 at 06: 42; Status DC Labetalol HCl (Trandate Inj) 20 mg Q3H PRN IV PUSH SBP > 160 Last administered on 02/15/17 17:13; Start 02/13/17 at 13:30 Lisinopril (Prinivil) 5 mg Q12HR PO Last administered on 02/17/17 08:57; Start 02/14/17 at 09:30 Nicotine (Habitrol 21 Mg Patch.24 Hr) 1 patch DAILY T-DERMAL Last administered on 02/17/17 08:58; Start 02/14/17 at 11:00 Miscellaneous Information 1 DAILY T-DERMAL Last administered on 02/17/17 08:58 ; Start 02/15/17 at 09:00 Aspirin (Ecotrin Ec) 325 mg DAILY PO ; Start 02/14/17 at 20:00; Stop 02/14/17 at 20:32; Status DC Aspirin (Aspirin Supp) 300 mg DAILY RECTAL Last administered on 02/17/17 08:58 ; Start 02/14/17 at 21:15 Alprazolam (Xanax) 0.5 mg Q8H PRN PO anxiety Last administered on 02/17/17 07: 00; Start 02/15/17 at 07:30 Acetaminophen/ Hydrocodone Bitart ([place] 5-325 Mg) 1 tab Q6H PRN PO PAIN SCALE 6 TO 10 Last administered on 02/17/17 11:50; Start 02/15/17 at 07:30 Clopidogrel Bisulfate (Plavix) 75 mg DAILY PO Last administered on 02/17/17 08 :57; Start 02/15/17 at 16:00 Metoprolol Tartrate (Lopressor) 50 mg TID PO Last administered on 02/17/17 08: 57; Start 02/16/17 at 09:00; Stop 02/17/17 at 09:28; Status DC Famotidine (Pepcid) 20 mg BID PO Last administered on 02/17/17 08:57; Start 02/16/17 at 09:00 Hydralazine HCl (Apresoline) 50 mg Q8H PRN PO sbp > 180 Last administered on 05:24; Start 02/16/17 at 06:45 Heparin Sodium (Porcine) (Heparin Inj) 5,000 units BID SQ Last administered on 02/17/17 08:58; Start 02/16/17 at 21:00 Amlodipine Besylate (Norvasc) 5 mg DAILY PO Last administered on 02/17/17 09: 59; Start 02/17/17 at 09:30 Metoprolol Tartrate (Lopressor) 75 mg TID PO ; Start 02/17/17 at 13:00 A/P Assessment and Plan 51yF s/p right MCA CVA with left side hemiparesis. Acute CVA - Status post TPA administration 02/12 in [place]. - Neuro checks every 2 hours - Management per neurology - PT and OT - continue ASA and Plavix Hypertension - Labetalol and hydralazine when necessary to keep SBP less than 180 - continue metoprolol and low dose lisinopril - consider adding amlodipine Dyslipidemia - Simvastatin GERD - PO Pepcid twice a day DVT prophylaxis - Teds SCDs - ASA and Plavix for stroke. Blake Nielson Feb 17, 2017 13:10
--- NOTE | 2017-02-17 13:29 | HHI.PR ---
Review/Management Diagnosis/Plan: (1) Acute ischemic right MCA stroke ICD Codes: I63.511 - Cerebral infarction due to unspecified occlusion or stenosis of right middle cerebral artery Status: Acute Plan: ica atherosclerotic dz with artery to artery emboli tob 1ppd x >30 years-per spouse, + htn recs repeat mri no change mra brain - focal higher grade stenosis distal R ICA, 2. plaque or poss thrombosis in mid basilar artery causing mild to moderate narrowing 02/15 EEG mild aysmmetric right hemispheric slowing and drowsy state therapy hep sub q for dvt prevention will review further with Dr. Oleary (2) Tobacco consumption ICD Codes: Z72.0 - Tobacco use Status: Chronic (3) HTN (hypertension) ICD Codes: I10 - Essential (primary) hypertension (4) Stroke ICD Codes: I63.9 - Cerebral infarction, unspecified Daily Summary 02/15 this am she is awake and conversant better than last night per speech seems simlar to yest at time of my eval mra showing severe stenosis vs occlusion right ica cavernous level, this was not present on initial CTA neck 02/12, will review with neuro radiology esr 7, pending hypercoag profile discussed with dr Pili person and hope to have SARA today to determine presence or not of heart thrombus, considering anticoagulation some recent leg pain per , prior to admission, check for DVT, spoke to RN ok to use some pain med for back spasming and also mild sedation for sleep acceptablr hob remains flat for now and try to keep bp up to 150-190 systolic discussed with her one of my partners will cover weekend 02/[address] Alejandre SARA negative also discussed with dr Ryley Steiner, the CT Angio may have missed the carotid cavernous dx because of surrounding bony artifact at that level, therefore the MRA finding likely reflects defect from the beginning rather than some new clot/embolism continue ASA and also add plavix for 4 weeks (Lubna Arreaga) Daily Summary examined and d/w PA. mri/mra reviewed. neuro exam stable. continue current regimen. Dr. Diaz back to tomorrow (Naeem Oleary MD) Subjective Subjective Comments No acute events reported reports her BP was elevated overnight also mild headache no change in left sided weakness Active Medications Current Medications Medications (Trade) Dose Ordered Sig/Silas Route Start Time Stop Time Status Last Admin (Pravachol) 80 mg HS PO 02/13/17 21:00 02/16/17 20:36 (NS Flush) 2 ml UNSCH PRN IV FLUSH 02/13/17 02:30 (NS Flush) 2 ml BID IV FLUSH 02/13/17 09:00 02/17/17 08:45 (Tylenol) 650 mg Q6H PRN PO 02/13/17 02:30 02/15/17 03:07 (Zofran Inj) 4 mg Q6H PRN IV PUSH 02/13/17 02:30 (Duoneb Neb) 1 ampule Q2HR NEB PRN INH 02/13/17 02:30 Miscellaneous Information 1 Q361D XX 02/13/17 02:30 02/13/17 02:30 (Chlorhexidine 2% Cloth) 3 pack Taper DAILY@04 TOP 02/13/17 04:00 02/09/18 03:59 (Chlorhexidine 2% Cloth) 3 pack UNSCH PRN TOP 02/13/17 02:30 (Brea-Colace) 1 tab BID PO 02/13/17 09:00 02/17/17 08:57 (Milk Of Magnesia Liq) 30 ml Q12H PRN PO 02/13/17 02:30 (Senokot) 17.2 mg Q12H PRN PO 02/13/17 02:30 (Dulcolax Supp) 10 mg DAILY PRN RECTAL 02/13/17 02:30 02/16/17 13:56 (Lactulose Liq) 30 ml DAILY PRN PO 02/13/17 02:30 (Trandate Inj) 20 mg Q3H PRN IV PUSH 02/13/17 13:30 02/15/17 17:13 (Prinivil) 5 mg Q12HR PO 02/14/17 09:30 02/17/17 08:57 (Habitrol 21 Mg Patch.24 Hr) 1 patch DAILY T-DERMAL 02/14/17 11:00 02/17/17 08:58 Miscellaneous Information 1 DAILY T-DERMAL 02/15/17 09:00 02/17/17 08:58 (Aspirin Supp) 300 mg DAILY RECTAL 02/14/17 21:15 02/17/17 08:58 (Xanax) 0.5 mg Q8H PRN PO 02/15/17 07:30 02/17/17 07:00 ([place] 5-325 Mg) 1 tab Q6H PRN PO 02/15/17 07:30 02/17/17 11:50 (Plavix) 75 mg DAILY PO 02/15/17 16:00 02/17/17 08:57 (Pepcid) 20 mg BID PO 02/16/17 09:00 02/17/17 08:57 (Apresoline) 50 mg Q8H PRN PO 02/16/17 06:45 02/17/17 05:24 (Heparin Inj) 5,000 units BID SQ 02/16/17 21:00 02/17/17 08:58 (Norvasc) 5 mg DAILY PO 02/17/17 09:30 02/17/17 09:59 (Lopressor) 75 mg TID PO 02/17/17 13:00 02/17/17 12:58 Allergies Allergies Coded Allergies Sulfa (Sulfonamide Antibiotics) (Verified Allergy, Unknown, 02/12/17) (Lubna Arreaga) Review of Systems All other ROS: ROS reviewed as documented in chart (Lubna Arreaga) Exam I&O / VS Vital Signs Date Time Temp Pulse Resp B/P (MAP) Pulse Ox O2 Delivery O2 Flow Rate FiO2 02/17/17 08:50 Nasal Cannula 2.00 02/17/17 08:00 97.7 104 16 181/77 (111) 94 02/17/17 07:03 166/77 (106) 02/17/17 04:00 98.4 96 18 202/91 (128) 93 02/17/17 00:00 98.4 89 20 190/81 (117) 95 02/16/17 20:53 95 Room Air 3.00 02/16/17 20:00 98.9 79 18 190/86 (120) 94 02/16/17 16:10 97.8 75 18 182/76 (111) 94 General: Alert and Oriented, No acute distress Eye: EOMI Respiratory: Non-labored respirations Neurologic: Alert Psychiatric: Cooperative Exam Comments A&Ox 3, follows commands, speech slow, rt gaze preference, ou 3-2mm, reduced left nlf, left hemiplegia, left babinski (Lubna Arreaga) Objective Radiology Results Last 48 hours Impressions Head Magnetic Resonance Angiography 02/16/17 0000 Signed Impressions: Service Date/Time: Thursday, February 16, 2017 11:45 - CONCLUSION: 1. Focal high-grade stenosis distal right internal carotid artery again seen. 2. There there is plaque or possible minimal thrombus in the mid basilar artery causing mild to moderate narrowing. This is unchanged. Bruce Doshi MD Brain MRI 02/16/17 0000 Signed Impressions: Service Date/Time: Thursday, February 16, 2017 11:45 - CONCLUSION: Right- sided acute infarctions are unchanged. No midline shift or mass effect. Bruce Doshi MD (Lubna Arreaga) Problem Qualifiers (1) HTN (hypertension): Qualified Codes: I10 - Essential (primary) hypertension Lubna Arreaga Feb 17, 2017 13:29 Naeem Oleary MD Feb 17, 2017 14:33
[2017-02-17] MEDS: PRAVASTATIN SOD 80 MG TAB PO SCH (20:39)
[2017-02-17 23:53] LABS: THROMBIN TIME FOR LA ND sec (13-19)
[2017-02-18] VITALS (8 sets, daily range): BP systolic 140–189; BP diastolic 69–85; PULSE 69–91; RESP 16–20; TEMP 97.2–98.9; O2SAT 94–100
[2017-02-18] MEDS: CHLORHEXIDINE GLUCONATE 2 % 1 PACK (2 CLOTHS) TOP SCH (04:00)
[2017-02-18] MEDS: ACETAMINOPHEN/HYDROcodone 325 MG/5 MG TAB PO PRN ×2 (06:39→20:12)
[2017-02-18] MEDS: FAMOTIDINE 20 MG TAB PO SCH ×2 (08:18→20:12)
[2017-02-18] MEDS: LISINOPRIL 5 MG TAB PO SCH ×2 (08:19→20:12)
[2017-02-18] MEDS: CLOPIDOGREL 75 MG TAB PO SCH (08:19)
[2017-02-18] MEDS: NICOTINE 21 MG/24 HR PATCH T-DERMAL SCH (08:19)
[2017-02-18] MEDS: DOCUSATE SODIUM 50 MG/SENNA 8.6 MG TAB PO SCH ×3 (08:19→20:12)
[2017-02-18] MEDS: amLODIPine BESYLATE 5 MG TAB PO SCH (08:19)
[2017-02-18] MEDS: METOPROLOL TARTRATE 50 MG TAB PO SCH ×3 (08:19→17:42)
[2017-02-18] MEDS: HEPARIN SODIUM - SQ 10,000 UNITS/ML VIAL SQ SCH ×2 (08:20→20:14)
[2017-02-18] MEDS: SODIUM CHLORIDE 0.9% FLUSH 10 ML FLUSH IV FLUSH SCH ×2 (08:20→20:13)
[2017-02-18] MEDS: REMOVE OLD PATCH T-DERMAL SCH (08:20)
[2017-02-18] MEDS ORDERED: NIFEdipine 10 MG CAP PO ONE (09:30)
[2017-02-18] MEDS: ASPIRIN 300 MG SUPP RECTAL SCH (09:36)
--- NOTE | 2017-02-18 09:38 | PD.PN.STU ---
Subjective Remarks Patient states no improvement in left hemiplegia. Patient complains of constant mild headache along with sinus pressure and drainage overnight. States she uses Flonase at home for usual sinus problems. On O2 nasal canula and reports no SOB. Objective Vitals Vital Signs Date Time Temp Pulse Resp B/P (MAP) Pulse Ox O2 Delivery O2 Flow Rate FiO2 02/18/17 08:00 98.5 83 18 186/85 (118) 100 02/18/17 04:00 98.9 91 20 189/85 (119) 94 02/18/17 04:00 87 02/18/17 00:00 97.2 85 20 141/73 (95) 95 02/17/17 20:00 98.4 72 18 158/72 (100) 93 02/17/17 16:00 98.9 73 16 174/79 (110) 97 02/17/17 12:00 97.3 76 16 173/78 (109) 97 I/O 02/17/17 02/17/17 02/17/17 02/18/17 02/18/17 02/18/17 06:59 14:59 22:59 06:59 14:59 22:59 # Voids 7 7 # Bowel Movements 3 Result Diagram: 02/14/17 0412 02/16/17 0420 Objective Remarks GENERAL: Patient lying in bed with washcloth on forehead. Makes limited movements but responsive to questioning and in no acute distress. SKIN: Warm and dry. HEAD: Atraumatic. Normocephalic. EYES: Pupils equal and round. No scleral icterus. No injection or drainage. ENT: No nasal bleeding or discharge. Mucous membranes pink and moist. NECK: Trachea midline. No JVD. CARDIOVASCULAR: Regular rate and rhythm. RESPIRATORY: No accessory muscle use. Clear to auscultation. Breath sounds equal bilaterally. GASTROINTESTINAL: Abdomen soft, non-tender, nondistended. Hepatic and splenic margins not palpable. MUSCULOSKELETAL: Extremities without clubbing, cyanosis, or edema. No obvious deformities. NEUROLOGICAL: Somnolent. Normal speech. Right side neurologically intact without abnormality. Incomplete vision loss in left eye, EOM normal, speech normal, no ptosis or facial droop. 0/5 muscle strength in L UE and LE. Sensation intact to touch on the L extremities Medications and IVs Current Medications Metoprolol Tartrate (Lopressor) 50 mg BID PO Last administered on 02/15/17 19: 56; Start 02/13/17 at 09:00; Stop 02/16/17 at 06:42; Status DC Pravastatin Sodium (Pravachol) 80 mg HS PO Last administered on 02/17/17 20:39 ; Start 02/13/17 at 21:00 Sodium Chloride 1,000 ml @ 84 mls/hr [id number] IV Last administered on 01:52; Start 02/13/17 at 02:22; Stop 02/16/17 at 08:29; Status DC Sodium Chloride (NS Flush) 2 ml UNSCH PRN IV FLUSH FLUSH AFTER USING IV ACCESS ; Start 02/13/17 at 02:30 Sodium Chloride (NS Flush) 2 ml BID IV FLUSH Last administered on 02/18/17 08: 20; Start 02/13/17 at 09:00 Acetaminophen (Tylenol) 650 mg Q6H PRN PO PAIN 1-5 AND/OR FEVER >101F Last administered on 02/15/17 03:07; Start 02/13/17 at 02:30 Famotidine (Pepcid Inj) 20 mg Q12HR IV PUSH Last administered on 02/15/17 19: 56; Start 02/13/17 at 09:00; Stop 02/16/17 at 06:42; Status DC Ondansetron HCl (Zofran Inj) 4 mg Q6H PRN IV PUSH NAUSEA OR VOMITING; Start at 02:30 Albuterol/ Ipratropium (Duoneb Neb) 1 ampule Q2HR NEB PRN INH WHEEZING; Start 02/13/17 at 02:30 Miscellaneous Information 1 Q361D XX Last administered on 02/13/17 02:30; Start 02/13/17 at 02:30 Chlorhexidine Gluconate (Chlorhexidine 2% Cloth) Taper DAILY@04 TOP ; Start at 04:00; Stop 02/09/18 at 03:59 Chlorhexidine Gluconate (Chlorhexidine 2% Cloth) 3 pack UNSCH PRN TOP HYGIENIC CARE; Start 02/13/17 at 02:30 Senna/Docusate Sodium (Brea-Colace) 1 tab BID PO Last administered on 20:38; Start 02/13/17 at 09:00 Magnesium Hydroxide (Milk Of Magnesia Liq) 30 ml Q12H PRN PO Mild constipation ; Start 02/13/17 at 02:30 Sennosides (Senokot) 17.2 mg Q12H PRN PO Moderate constipation; Start at 02:30 Bisacodyl (Dulcolax Supp) 10 mg DAILY PRN RECTAL SEVERE CONSITIPATION Last administered on 02/16/17 13:56; Start 02/13/17 at 02:30 Lactulose (Lactulose Liq) 30 ml DAILY PRN PO SEVERE CONSITIPATION; Start 02/13 at 02:30 Pantoprazole Sodium (Protonix Inj) 40 mg ONCE ONCE IV PUSH Last administered on 02/13/17 06:15; Start 02/13/17 at 06:15; Stop 02/13/17 at 06:16; Status DC Hydralazine HCl (Apresoline Inj) 20 mg Q3H PRN IV PUSH SBP > 180 Last administered on 02/15/17 18:56; Start 02/13/17 at 13:30; Stop 02/16/17 at 06: 42; Status DC Labetalol HCl (Trandate Inj) 20 mg Q3H PRN IV PUSH SBP > 160 Last administered on 02/15/17 17:13; Start 02/13/17 at 13:30 Lisinopril (Prinivil) 5 mg Q12HR PO Last administered on 02/18/17 08:19; Start 02/14/17 at 09:30 Nicotine (Habitrol 21 Mg Patch.24 Hr) 1 patch DAILY T-DERMAL Last administered on 02/18/17 08:19; Start 02/14/17 at 11:00 Miscellaneous Information 1 DAILY T-DERMAL Last administered on 02/18/17 08:20 ; Start 02/15/17 at 09:00 Aspirin (Ecotrin Ec) 325 mg DAILY PO ; Start 02/14/17 at 20:00; Stop 02/14/17 at 20:32; Status DC Aspirin (Aspirin Supp) 300 mg DAILY RECTAL Last administered on 02/17/17 08:58 ; Start 02/14/17 at 21:15 Alprazolam (Xanax) 0.5 mg Q8H PRN PO anxiety Last administered on 02/17/17 20: 38; Start 02/15/17 at 07:30 Acetaminophen/ Hydrocodone Bitart ([place] 5-325 Mg) 1 tab Q6H PRN PO PAIN SCALE 6 TO 10 Last administered on 02/18/17 06:39; Start 02/15/17 at 07:30 Clopidogrel Bisulfate (Plavix) 75 mg DAILY PO Last administered on 02/18/17 08 :19; Start 02/15/17 at 16:00 Metoprolol Tartrate (Lopressor) 50 mg TID PO Last administered on 02/17/17 08: 57; Start 02/16/17 at 09:00; Stop 02/17/17 at 09:28; Status DC Famotidine (Pepcid) 20 mg BID PO Last administered on 02/18/17 08:18; Start 02/16/17 at 09:00 Hydralazine HCl (Apresoline) 50 mg Q8H PRN PO sbp > 180 Last administered on 05:24; Start 02/16/17 at 06:45 Heparin Sodium (Porcine) (Heparin Inj) 5,000 units BID SQ Last administered on 02/18/17 08:20; Start 02/16/17 at 21:00 Amlodipine Besylate (Norvasc) 5 mg DAILY PO Last administered on 02/18/17 08: 19; Start 02/17/17 at 09:30; Stop 02/18/17 at 09:23; Status DC Metoprolol Tartrate (Lopressor) 75 mg TID PO Last administered on 02/18/17 08: 19; Start 02/17/17 at 13:00 Nifedipine (Procardia) 10 mg Q8HR PO ; Start 02/18/17 at 14:00; Status UNV Nifedipine (Procardia) 10 mg ONCE ONCE PO ; Start 02/18/17 at 09:30; Stop 02/18 at 09:31; Status UNV A/P Assessment and Plan 51yF s/p right MCA CVA with left side hemiplegia. Acute CVA - Status post TPA administration 02/12 in [place]. - Management per neurology - PT and OT - continue ASA and Plavix Headache - present since stroke although sinus pressure may be contributing - consider adding intranasal fluticasone Hypertension - Labetalol and hydralazine when necessary to keep SBP less than 180 - continue metoprolol, low dose lisinopril, and amlodipine - BPs improved today from past days Dyslipidemia - Simvastatin GERD - PO Pepcid twice a day DVT prophylaxis - Teds SCDs - ASA and Plavix for stroke. Blake Nielson M3 Feb 18, 2017 09:38
--- NOTE | 2017-02-18 10:16 | HHI.PR ---
Review/Management Diagnosis/Plan: (1) Acute ischemic right MCA stroke ICD Codes: I63.511 - Cerebral infarction due to unspecified occlusion or stenosis of right middle cerebral artery Status: Acute Plan: ica atherosclerotic dz with artery to artery emboli tob 1ppd x >30 years-per spouse, + htn recs repeat mri no change mra brain - focal higher grade stenosis distal R ICA, 2. plaque or poss thrombosis in mid basilar artery causing mild to moderate narrowing 02/15 EEG mild aysmmetric right hemispheric slowing and drowsy state therapy hep sub q for dvt prevention will review further with Dr. Oleary (2) Tobacco consumption ICD Codes: Z72.0 - Tobacco use Status: Chronic (3) HTN (hypertension) ICD Codes: I10 - Essential (primary) hypertension (4) Stroke ICD Codes: I63.9 - Cerebral infarction, unspecified Daily Summary examined and d/w PA. mri/mra reviewed. neuro exam stable. continue current regimen. Dr. Diaz back to tomorrow 02/18 she continues to have severe left hemiparesis, near 0/5 verbalizing no distress, follows commands, awake weekend data reviewed continue asa and plavix and statin will consider eval for right carotid stenting in 6 weeks Subjective Subjective Comments No new neuro events reported Mild headache Active Medications Current Medications Medications (Trade) Dose Ordered Sig/Silas Route Start Time Stop Time Status Last Admin (Pravachol) 80 mg HS PO 02/13/17 21:00 02/17/17 20:39 (NS Flush) 2 ml UNSCH PRN IV FLUSH 02/13/17 02:30 (NS Flush) 2 ml BID IV FLUSH 02/13/17 09:00 02/18/17 08:20 (Tylenol) 650 mg Q6H PRN PO 02/13/17 02:30 02/15/17 03:07 (Zofran Inj) 4 mg Q6H PRN IV PUSH 02/13/17 02:30 (Duoneb Neb) 1 ampule Q2HR NEB PRN INH 02/13/17 02:30 Miscellaneous Information 1 Q361D XX 02/13/17 02:30 02/13/17 02:30 (Chlorhexidine 2% Cloth) Taper DAILY@04 TOP 02/13/17 04:00 02/09/18 03:59 (Chlorhexidine 2% Cloth) 3 pack UNSCH PRN TOP 02/13/17 02:30 (Brea-Colace) 1 tab BID PO 02/13/17 09:00 02/17/17 20:38 (Milk Of Magnesia Liq) 30 ml Q12H PRN PO 02/13/17 02:30 (Senokot) 17.2 mg Q12H PRN PO 02/13/17 02:30 (Dulcolax Supp) 10 mg DAILY PRN RECTAL 02/13/17 02:30 02/16/17 13:56 (Lactulose Liq) 30 ml DAILY PRN PO 02/13/17 02:30 (Trandate Inj) 20 mg Q3H PRN IV PUSH 02/13/17 13:30 02/15/17 17:13 (Prinivil) 5 mg Q12HR PO 02/14/17 09:30 02/18/17 08:19 (Habitrol 21 Mg Patch.24 Hr) 1 patch DAILY T-DERMAL 02/14/17 11:00 02/18/17 08:19 Miscellaneous Information 1 DAILY T-DERMAL 02/15/17 09:00 02/18/17 08:20 (Aspirin Supp) 300 mg DAILY RECTAL 02/14/17 21:15 02/18/17 09:36 (Xanax) 0.5 mg Q8H PRN PO 02/15/17 07:30 02/17/17 20:38 ([place] 5-325 Mg) 1 tab Q6H PRN PO 02/15/17 07:30 02/18/17 06:39 (Plavix) 75 mg DAILY PO 02/15/17 16:00 02/18/17 08:19 (Pepcid) 20 mg BID PO 02/16/17 09:00 02/18/17 08:18 (Apresoline) 50 mg Q8H PRN PO 02/16/17 06:45 02/17/17 05:24 (Heparin Inj) 5,000 units BID SQ 02/16/17 21:00 02/18/17 08:20 (Lopressor) 75 mg TID PO 02/17/17 13:00 02/18/17 08:19 (Procardia) 10 mg Q8HR PO 02/18/17 14:00 Allergies Allergies Coded Allergies Sulfa (Sulfonamide Antibiotics) (Verified Allergy, Unknown, 02/12/17) Review of Systems All other ROS: ROS reviewed as documented in chart Exam I&O / VS Vital Signs Date Time Temp Pulse Resp B/P (MAP) Pulse Ox O2 Delivery O2 Flow Rate FiO2 02/18/17 10:00 69 02/18/17 08:00 98.5 83 18 186/85 (118) 100 02/18/17 04:00 98.9 91 20 189/85 (119) 94 02/18/17 04:00 87 02/18/17 00:00 97.2 85 20 141/73 (95) 95 02/17/17 20:00 98.4 72 18 158/72 (100) 93 02/17/17 16:00 98.9 73 16 174/79 (110) 97 02/17/17 12:00 97.3 76 16 173/78 (109) 97 General: Alert and Oriented, No acute distress Eye: EOMI Respiratory: Non-labored respirations Neurologic: Alert Psychiatric: Cooperative Objective Micro and Labs Laboratory Tests Test 02/16/17 04:20 02/16/17 13:06 Calcium Level 7.9 MG/DL (8.5-10.1) Problem Qualifiers (1) HTN (hypertension): Qualified Codes: I10 - Essential (primary) hypertension Mio Lozano MD Feb 18, 2017 10:16
[2017-02-18] MEDS: NIFEdipine 10 MG CAP PO SCH ×2 (12:14→20:32)
--- NOTE | 2017-02-18 16:10 | HHI.PR ---
Subjective Remarks Patient reports no improvement in left-sided hemiparesis. Still having some headache. Blood pressure not well controlled. Family requested that I fill out FMLA and short term disability paperwork. Objective Vitals Vital Signs Date Time Temp Pulse Resp B/P (MAP) Pulse Ox O2 Delivery O2 Flow Rate FiO2 02/18/17 12:00 98.3 72 16 140/69 (92) 96 02/18/17 10:00 69 02/18/17 08:30 Nasal Cannula 2.00 02/18/17 08:00 98.5 83 18 186/85 (118) 100 02/18/17 04:00 98.9 91 20 189/85 (119) 94 02/18/17 04:00 87 02/18/17 00:00 97.2 85 20 141/73 (95) 95 02/17/17 20:00 98.4 72 18 158/72 (100) 93 I/O 02/17/17 02/17/17 02/17/17 02/18/17 02/18/17 02/18/17 07:00 15:00 23:00 07:00 15:00 23:00 # Voids 7 7 2 # Bowel Movements 3 Result Diagram: 02/14/17 0412 02/16/17 0420 Objective Remarks GENERAL: This is a well-nourished, well-developed patient, in no apparent distress. CARDIOVASCULAR: Normal rate and regular rhythm without murmurs, gallops, or rubs. RESPIRATORY: Good respiratory efforts. Breath sounds equal and clear to auscultation bilaterally. GASTROINTESTINAL: Abdomen soft, non-tender, non-distended. Normal active bowel sounds MUSCULOSKELETAL: Extremities without cyanosis, or edema. NEURO: Alert & Oriented x4 to person, place, time, situation. Left-sided hemiplegia PSYCH: Appropriate mood and affect. A/P Problem List: (1) Acute ischemic right MCA stroke ICD Code: I63.511 - Cerebral infarction due to unspecified occlusion or stenosis of right middle cerebral artery Status: Acute (2) HTN (hypertension) ICD Code: I10 - Essential (primary) hypertension (3) Tobacco consumption ICD Code: Z72.0 - Tobacco use Status: Chronic Assessment and Plan 51-year-old female admitted with a large right MCA stroke. Patient has significant left-sided hemiplegia. Acute CVA - Status post TPA administration 02/12 in [place]. - Neuro checks every 2 hours - Management per neurology - Stroke rehabilitation. PT and OT - continue ASA and Plavix - [place] following. - I filled out paperwork for FMLA and short term disability. Hypertension: Uncontrolled. -Continue metoprolol 75 mg 3 times a day. Continue lisinopril 5 mg daily. Discontinue amlodipine. Start nifedipine 10 mg every 8 hours. Will avoid nephrotoxic medications as patient only has one kidney. - Labetalol and hydralazine when necessary to keep SBP less than 180 - continue metoprolol and low dose lisinopril Dyslipidemia - Continue Simvastatin GERD - PO Pepcid twice a day DVT prophylaxis -Heparin Discharge Planning Will need inpatient rehabilitation. Problem Qualifiers (1) HTN (hypertension): Qualified Codes: I10 - Essential (primary) hypertension Laila Galindo MD Feb 18, 2017 16:10
[2017-02-18] MEDS: PRAVASTATIN SOD 80 MG TAB PO SCH (20:12)
[2017-02-18] MEDS: ALPRAZolam 0.5 MG TAB PO PRN (20:32)
[2017-02-19] VITALS (7 sets, daily range): BP systolic 134–197; BP diastolic 65–87; PULSE 61–87; RESP 18–20; TEMP 95.3–98.1; O2SAT 96–97
[2017-02-19] MEDS: CHLORHEXIDINE GLUCONATE 2 % 1 PACK (2 CLOTHS) TOP SCH (03:39)
[2017-02-19] MEDS: ACETAMINOPHEN/HYDROcodone 325 MG/5 MG TAB PO PRN ×2 (07:07→14:01)
[2017-02-19] MEDS: NIFEdipine 10 MG CAP PO SCH (07:08)
[2017-02-19] MEDS: REMOVE OLD PATCH T-DERMAL SCH (09:00)
--- NOTE | 2017-02-19 09:20 | PD.PN.STU ---
Subjective Remarks Patient feeling better today. No longer has headache. Eating well and has had bowel movements. Still no voluntary movement in L side although has had 2 episodes of "muscle spasms" in L leg. Continues to make improvements with PT. Objective Vitals Vital Signs Date Time Temp Pulse Resp B/P (MAP) Pulse Ox O2 Delivery O2 Flow Rate FiO2 02/19/17 08:31 98.0 87 20 171/78 (109) 96 02/19/17 05:38 95.3 79 18 162/72 (102) 96 02/19/17 00:46 97.5 72 18 141/65 (90) 96 02/18/17 22:00 97.3 70 18 173/81 (111) 97 02/18/17 20:45 Nasal Cannula 2.00 02/18/17 20:00 76 02/18/17 16:00 97.8 82 20 176/83 (114) 95 02/18/17 12:00 98.3 72 16 140/69 (92) 96 02/18/17 12:00 72 02/18/17 10:00 69 I/O 02/18/17 02/18/17 02/18/17 02/19/17 02/19/17 02/19/17 07:00 15:00 23:00 07:00 15:00 23:00 Intake Total 240 ml Balance 240 ml Intake Oral 240 ml # Voids 7 2 5 2 # Bowel Movements 3 2 1 Result Diagram: 02/16/17 0420 Objective Remarks GENERAL: Patient lying in bed. More responsive to questioning than in past days. In no acute distress. SKIN: Warm and dry. HEAD: Atraumatic. Normocephalic. EYES: Pupils equal and round. No scleral icterus. No injection or drainage. ENT: No nasal bleeding or discharge. Mucous membranes pink and moist. NECK: Trachea midline. No JVD. CARDIOVASCULAR: Regular rate and rhythm. RESPIRATORY: No accessory muscle use. Clear to auscultation. Breath sounds equal bilaterally. GASTROINTESTINAL: Abdomen soft, non-tender, nondistended. Hepatic and splenic margins not palpable. MUSCULOSKELETAL: Extremities without clubbing, cyanosis, or edema. No obvious deformities. NEUROLOGICAL: Somnolent. Normal speech. Right side neurologically intact without abnormality. Incomplete vision loss in left eye, EOM normal, speech normal, no ptosis or facial droop. 0/5 muscle strength in L UE and LE. Sensation intact to touch on the L extremities Medications and IVs Current Medications Metoprolol Tartrate (Lopressor) 50 mg BID PO Last administered on 02/15/17 19: 56; Start 02/13/17 at 09:00; Stop 02/16/17 at 06:42; Status DC Pravastatin Sodium (Pravachol) 80 mg HS PO Last administered on 02/18/17 20:12 ; Start 02/13/17 at 21:00 Sodium Chloride 1,000 ml @ 84 mls/hr [id number] IV Last administered on 01:52; Start 02/13/17 at 02:22; Stop 02/16/17 at 08:29; Status DC Sodium Chloride (NS Flush) 2 ml UNSCH PRN IV FLUSH FLUSH AFTER USING IV ACCESS ; Start 02/13/17 at 02:30 Sodium Chloride (NS Flush) 2 ml BID IV FLUSH Last administered on 02/18/17 20: 13; Start 02/13/17 at 09:00 Acetaminophen (Tylenol) 650 mg Q6H PRN PO PAIN 1-5 AND/OR FEVER >101F Last administered on 02/15/17 03:07; Start 02/13/17 at 02:30 Famotidine (Pepcid Inj) 20 mg Q12HR IV PUSH Last administered on 02/15/17 19: 56; Start 02/13/17 at 09:00; Stop 02/16/17 at 06:42; Status DC Ondansetron HCl (Zofran Inj) 4 mg Q6H PRN IV PUSH NAUSEA OR VOMITING; Start at 02:30 Albuterol/ Ipratropium (Duoneb Neb) 1 ampule Q2HR NEB PRN INH WHEEZING; Start 02/13/17 at 02:30 Miscellaneous Information 1 Q361D XX Last administered on 02/13/17 02:30; Start 02/13/17 at 02:30 Chlorhexidine Gluconate (Chlorhexidine 2% Cloth) Taper DAILY@04 TOP ; Start at 04:00; Stop 02/09/18 at 03:59 Chlorhexidine Gluconate (Chlorhexidine 2% Cloth) 3 pack UNSCH PRN TOP HYGIENIC CARE; Start 02/13/17 at 02:30 Senna/Docusate Sodium (Brea-Colace) 1 tab BID PO Last administered on 20:12; Start 02/13/17 at 09:00 Magnesium Hydroxide (Milk Of Magnesia Liq) 30 ml Q12H PRN PO Mild constipation ; Start 02/13/17 at 02:30 Sennosides (Senokot) 17.2 mg Q12H PRN PO Moderate constipation; Start at 02:30 Bisacodyl (Dulcolax Supp) 10 mg DAILY PRN RECTAL SEVERE CONSITIPATION Last administered on 02/16/17 13:56; Start 02/13/17 at 02:30 Lactulose (Lactulose Liq) 30 ml DAILY PRN PO SEVERE CONSITIPATION; Start 02/13 at 02:30 Pantoprazole Sodium (Protonix Inj) 40 mg ONCE ONCE IV PUSH Last administered on 02/13/17 06:15; Start 02/13/17 at 06:15; Stop 02/13/17 at 06:16; Status DC Hydralazine HCl (Apresoline Inj) 20 mg Q3H PRN IV PUSH SBP > 180 Last administered on 02/15/17 18:56; Start 02/13/17 at 13:30; Stop 02/16/17 at 06: 42; Status DC Labetalol HCl (Trandate Inj) 20 mg Q3H PRN IV PUSH SBP > 160 Last administered on 02/15/17 17:13; Start 02/13/17 at 13:30 Lisinopril (Prinivil) 5 mg Q12HR PO Last administered on 02/18/17 20:12; Start 02/14/17 at 09:30 Nicotine (Habitrol 21 Mg Patch.24 Hr) 1 patch DAILY T-DERMAL Last administered on 02/18/17 08:19; Start 02/14/17 at 11:00 Miscellaneous Information 1 DAILY T-DERMAL Last administered on 02/18/17 08:20 ; Start 02/15/17 at 09:00 Aspirin (Ecotrin Ec) 325 mg DAILY PO ; Start 02/14/17 at 20:00; Stop 02/14/17 at 20:32; Status DC Aspirin (Aspirin Supp) 300 mg DAILY RECTAL Last administered on 02/18/17 09:36 ; Start 02/14/17 at 21:15 Alprazolam (Xanax) 0.5 mg Q8H PRN PO anxiety Last administered on 02/18/17 20: 32; Start 02/15/17 at 07:30 Acetaminophen/ Hydrocodone Bitart ([place] 5-325 Mg) 1 tab Q6H PRN PO PAIN SCALE 6 TO 10 Last administered on 02/19/17 07:07; Start 02/15/17 at 07:30 Clopidogrel Bisulfate (Plavix) 75 mg DAILY PO Last administered on 02/18/17 08 :19; Start 02/15/17 at 16:00 Metoprolol Tartrate (Lopressor) 50 mg TID PO Last administered on 02/17/17 08: 57; Start 02/16/17 at 09:00; Stop 02/17/17 at 09:28; Status DC Famotidine (Pepcid) 20 mg BID PO Last administered on 02/18/17 20:12; Start 02/16/17 at 09:00 Hydralazine HCl (Apresoline) 50 mg Q8H PRN PO sbp > 180 Last administered on 05:24; Start 02/16/17 at 06:45 Heparin Sodium (Porcine) (Heparin Inj) 5,000 units BID SQ Last administered on 02/18/17 20:14; Start 02/16/17 at 21:00 Amlodipine Besylate (Norvasc) 5 mg DAILY PO Last administered on 02/18/17 08: 19; Start 02/17/17 at 09:30; Stop 02/18/17 at 09:23; Status DC Metoprolol Tartrate (Lopressor) 75 mg TID PO Last administered on 02/18/17 17: 42; Start 02/17/17 at 13:00 Nifedipine (Procardia) 10 mg Q8HR PO Last administered on 02/19/17 07:08; Start 02/18/17 at 14:00 Nifedipine (Procardia) 10 mg ONCE ONCE PO Last administered on 02/18/17 10:05 ; Start 02/18/17 at 09:30; Stop 02/18/17 at 09:50; Status DC A/P Assessment and Plan [id number] s/p right MCA CVA with left side hemiplegia. Acute CVA - Status post TPA administration 02/12 in [place]. - Management per neurology - PT and OT - continue ASA and Plavix Hypertension - Labetalol and hydralazine when necessary to keep SBP less than 180 - continue metoprolol, low dose lisinopril, and nifedipine - BPs improved today from past days, although still in 170s SBP - Consider increase in nifedipine if BPs continue to run >160 SBP Dyslipidemia - Simvastatin GERD - PO Pepcid twice a day DVT prophylaxis - Teds SCDs - ASA and Plavix for stroke. Blake Nielson M3 Feb 19, 2017 09:20
[2017-02-19] MEDS: SODIUM CHLORIDE 0.9% FLUSH 10 ML FLUSH IV FLUSH SCH (09:32)
[2017-02-19] MEDS: HEPARIN SODIUM - SQ 10,000 UNITS/ML VIAL SQ SCH (09:33)
[2017-02-19] MEDS: DOCUSATE SODIUM 50 MG/SENNA 8.6 MG TAB PO SCH (09:33)
[2017-02-19] MEDS: CLOPIDOGREL 75 MG TAB PO SCH (09:33)
[2017-02-19] MEDS: FAMOTIDINE 20 MG TAB PO SCH (09:33)
[2017-02-19] MEDS: LISINOPRIL 5 MG TAB PO SCH (09:33)
[2017-02-19] MEDS: NICOTINE 21 MG/24 HR PATCH T-DERMAL SCH (09:34)
[2017-02-19] MEDS: ASPIRIN 300 MG SUPP RECTAL SCH (09:34)
[2017-02-19] MEDS: METOPROLOL TARTRATE 50 MG TAB PO SCH ×2 (09:38→13:59)
[2017-02-19] MEDS ORDERED: LISI-519 PO (11:28)
[2017-02-19] MEDS ORDERED: ASPI-183 PO (11:28)
[2017-02-19] MEDS ORDERED: PLAV75TA29 PO (11:28)
[2017-02-19] MEDS ORDERED: METO-426 PO (11:28)
[2017-02-19] MEDS ORDERED: HYDR-3516 PO (11:28)
[2017-02-19] MEDS ORDERED: NIFE20 PO (11:28)
[2017-02-19] MEDS ORDERED: ALPR.5 PO (11:28)
--- NOTE | 2017-02-19 12:05 | HHI.DS ---
Discharge Summary Admission Date Feb 13, 2017 at 01:10 Discharge Date: Feb 19, 2017 Admitting Diagnosis (1) Acute ischemic right MCA stroke ICD Code: I63.511 - Cerebral infarction due to unspecified occlusion or stenosis of right middle cerebral artery Status: Acute (2) HTN (hypertension) ICD Code: I10 - Essential (primary) hypertension (3) Tobacco consumption ICD Code: Z72.0 - Tobacco use Status: Chronic Procedures None Brief History - From Admission 51-year-old female with a past medical history of hypertension presents with left-sided weakness left facial droop, altered mental status. Symptoms started at 2044. Patient had GI upset symptoms for the last 3-4 days including nausea, vomiting, diarrhea. Her brought her to the emergency room for the gastric enteritis symptoms however in route patient presented with left sided weakness that progressively got worse to the point he had to left her off the car to the emergency room wheelchair. Was evaluated by neurologist stone driller helper and decision was made to administer TPA. CBC/BMP: 02/16/17 0420 Significant Findings Laboratory Tests Test 02/16/17 13:06 Imaging Last Impressions Head Magnetic Resonance Angiography 02/16/17 0000 Signed Impressions: Service Date/Time: Thursday, February 16, 2017 11:45 - CONCLUSION: 1. Focal high-grade stenosis distal right internal carotid artery again seen. 2. There there is plaque or possible minimal thrombus in the mid basilar artery causing mild to moderate narrowing. This is unchanged. Bruce Doshi MD Brain MRI 02/16/17 0000 Signed Impressions: Service Date/Time: Thursday, February 16, 2017 11:45 - CONCLUSION: Right- sided acute infarctions are unchanged. No midline shift or mass effect. Bruce Doshi MD Lower Extremity Ultrasound 02/15/17 0000 Signed Impressions: Service Date/Time: Wednesday, February 15, 2017 08:09 - CONCLUSION: Normal examination. Gerard Hays MD Head CT 02/14/17 0000 Signed Impressions: Service Date/Time: January 19:12 - CONCLUSION: Persistent low-density/infarction at the right frontal and anterior parietal lobes. Gerard Donovan MD PE at Discharge GENERAL: This is a well-nourished, well-developed patient, in no apparent distress. CARDIOVASCULAR: Normal rate and regular rhythm without murmurs, gallops, or rubs. RESPIRATORY: Good respiratory efforts. Breath sounds equal and clear to auscultation bilaterally. GASTROINTESTINAL: Abdomen soft, non-tender, non-distended. Normal active bowel sounds MUSCULOSKELETAL: Extremities without cyanosis, or edema. NEURO: Alert & Oriented x4 to person, place, time, situation. Left-sided hemiplegia PSYCH: Appropriate mood and affect. Pt update on day of discharge Patient reports she is feeling better overall today. No headaches. Left-sided hemiparesis is unchanged. Hospital Course 51-year-old female admitted with a large right MCA stroke. Patient has significant left-sided hemiplegia. Patient is status post TPA administration on 02/12/17 in [place]. She was followed by neurology who advised aspirin and Plavix. She has significant residual left-sided hemiplegia. She is discharged to [facility] to continue rehabilitation efforts. The patient also has hypertension that has been uncontrolled. Her medications has been adjusted and will continue to need titration at the inpatient rehabilitation. Nephrotoxic medications were avoided because the patient has a history of nephrectomy. Pt Condition on Discharge: Good Discharge Disposition: Rehab Inpatient Discharge Time: > 30 minutes Discharge Instructions DIET: Follow Instructions for: As Tolerated, No Restrictions Activities you can perform: Regular-No Restrictions Follow up Referrals: Neurology - 4 Weeks with Mio Lozano MD New Medications: Aspirin (Aspirin) 325 Mg Tab 325 MG PO DAILY, #30 TAB 0 Refills Alprazolam (Xanax) 0.5 Mg Tab 0.5 MG PO Q8H PRN for anxiety, #1 TAB Clopidogrel (Plavix) 75 Mg Tab 75 MG PO DAILY, #30 TAB Hydralazine HCl (Hydralazine HCl) 50 Mg Tablet 50 MG PO Q8H PRN for sbp > 180, #1 TAB Hydrocodone/Acetaminophen (Hydrocodone-Acetamin 5-325 mg) 5 Mg-325 Mg Tablet 1 TAB PO Q6H PRN for PAIN SCALE 6 TO 10, #1 TAB Lisinopril (Lisinopril) 5 Mg Tab 5 MG PO Q12HR, #60 TAB Nifedipine (Nifedipine) 20 Mg Cap 20 MG PO Q8HR, #90 CAP Changed Medications: Metoprolol Tartrate (Metoprolol Tartrate) 75 Mg Tab 75 MG PO TID, #90 TAB 0 Refills (Changed from: Metoprolol Tartrate 50 Mg Tab 50 Mg PO BID #60 TAB Ref 0) Continued Medications: Omeprazole (Omeprazole) 40 Mg Cap 40 MG PO DAILY, #30 CAP 0 Refills Simvastatin (Simvastatin) 40 Mg Tab 40 MG PO HS for Cholesterol Management, #30 TAB 0 Refills Laila Galindo MD Feb 19, 2017 12:05
[2017-02-19] MEDS ORDERED: HYDR-3800 PO (13:14)
[2017-02-19] MEDS ORDERED: NIFEdipine 20 MG CAP PO SCH (14:00)
--- NOTE | 2017-02-19 14:58 | HHI.PR ---
Review/Management Diagnosis/Plan: (1) Acute ischemic right MCA stroke ICD Codes: I63.511 - Cerebral infarction due to unspecified occlusion or stenosis of right middle cerebral artery Status: Acute Plan: ica atherosclerotic dz with artery to artery emboli tob 1ppd x >30 years-per spouse, + htn recs repeat mri no change mra brain - focal higher grade stenosis distal R ICA, 2. plaque or poss thrombosis in mid basilar artery causing mild to moderate narrowing 02/15 EEG mild aysmmetric right hemispheric slowing and drowsy state therapy hep sub q for dvt prevention will review further with Dr. Oleary (2) Tobacco consumption ICD Codes: Z72.0 - Tobacco use Status: Chronic (3) HTN (hypertension) ICD Codes: I10 - Essential (primary) hypertension (4) Stroke ICD Codes: I63.9 - Cerebral infarction, unspecified Daily Summary examined and d/w PA. mri/mra reviewed. neuro exam stable. continue current regimen. Dr. Diaz back to tomorrow 02/18 she continues to have severe left hemiparesis, near 0/5 verbalizing no distress, follows commands, awake weekend data reviewed continue asa and plavix and statin will consider eval for right carotid stenting in 6 weeks 02/19 no distress discussed at length with her advised of permanent deficits and improvement slowly up to 2 years likely will benefit of rehab, sukhi apparently evaluating for transfer discussed the possibility of right ICA stenting in 4 weeks if angio study shows some flow pt herself promptly said she wants NO such procedure (after I discussed risks and benefits) but I advised her to wait on making this decision continue asa and plavix for 4-6 weeks than single antiplatelet agent Subjective Subjective Comments at bedside pt has no cx Active Medications Current Medications Medications (Trade) Dose Ordered Sig/Silas Route Start Time Stop Time Status Last Admin (Pravachol) 80 mg HS PO 02/13/17 21:00 02/18/17 20:12 (NS Flush) 2 ml UNSCH PRN IV FLUSH 02/13/17 02:30 (NS Flush) 2 ml BID IV FLUSH 02/13/17 09:00 02/19/17 09:32 (Tylenol) 650 mg Q6H PRN PO 02/13/17 02:30 02/15/17 03:07 (Zofran Inj) 4 mg Q6H PRN IV PUSH 02/13/17 02:30 (Duoneb Neb) 1 ampule Q2HR NEB PRN INH 02/13/17 02:30 Miscellaneous Information 1 Q361D XX 02/13/17 02:30 02/13/17 02:30 (Chlorhexidine 2% Cloth) Taper DAILY@04 TOP 02/13/17 04:00 02/09/18 03:59 (Chlorhexidine 2% Cloth) 3 pack UNSCH PRN TOP 02/13/17 02:30 (Brea-Colace) 1 tab BID PO 02/13/17 09:00 02/19/17 09:33 (Milk Of Magnesia Liq) 30 ml Q12H PRN PO 02/13/17 02:30 (Senokot) 17.2 mg Q12H PRN PO 02/13/17 02:30 (Dulcolax Supp) 10 mg DAILY PRN RECTAL 02/13/17 02:30 02/16/17 13:56 (Lactulose Liq) 30 ml DAILY PRN PO 02/13/17 02:30 (Trandate Inj) 20 mg Q3H PRN IV PUSH 02/13/17 13:30 02/15/17 17:13 (Prinivil) 5 mg Q12HR PO 02/14/17 09:30 02/19/17 09:33 (Habitrol 21 Mg Patch.24 Hr) 1 patch DAILY T-DERMAL 02/14/17 11:00 02/19/17 09:34 Miscellaneous Information 1 DAILY T-DERMAL 02/15/17 09:00 02/19/17 09:00 (Aspirin Supp) 300 mg DAILY RECTAL 02/14/17 21:15 02/19/17 09:34 (Xanax) 0.5 mg Q8H PRN PO 02/15/17 07:30 02/18/17 20:32 ([place] 5-325 Mg) 1 tab Q6H PRN PO 02/15/17 07:30 02/19/17 14:01 (Plavix) 75 mg DAILY PO 02/15/17 16:00 02/19/17 09:33 (Pepcid) 20 mg BID PO 02/16/17 09:00 02/19/17 09:33 (Apresoline) 50 mg Q8H PRN PO 02/16/17 06:45 02/17/17 05:24 (Heparin Inj) 5,000 units BID SQ 02/16/17 21:00 02/19/17 09:33 (Lopressor) 75 mg TID PO 02/17/17 13:00 02/19/17 13:59 (Procardia) 20 mg Q8HR PO 02/19/17 14:00 02/19/17 13:59 Allergies Allergies Coded Allergies Sulfa (Sulfonamide Antibiotics) (Verified Allergy, Unknown, 02/12/17) Review of Systems All other ROS: ROS reviewed as documented in chart Exam I&O / VS Vital Signs Date Time Temp Pulse Resp B/P (MAP) Pulse Ox O2 Delivery O2 Flow Rate FiO2 02/19/17 12:00 98.1 61 20 197/87 (123) 97 02/19/17 10:21 72 02/19/17 08:31 98.0 87 20 171/78 (109) 96 02/19/17 05:38 95.3 79 18 162/72 (102) 96 02/19/17 00:46 97.5 72 18 141/65 (90) 96 02/18/17 22:00 97.3 70 18 173/81 (111) 97 02/18/17 20:45 Nasal Cannula 2.00 02/18/17 20:00 76 02/18/17 16:00 97.8 82 20 176/83 (114) 95 General: Alert and Oriented, No acute distress Eye: EOMI Respiratory: Non-labored respirations Neurologic: Alert Psychiatric: Cooperative Objective Documentation Reviewed: Reviewed old records Problem Qualifiers (1) HTN (hypertension): Qualified Codes: I10 - Essential (primary) hypertension Mio Lozano MD Feb 19, 2017 14:58
[2017-02-19 19:52] LABS: PHOSPHATIDYLSERINE AB IGA LESS THAN 20.0 U/mL (< 20.0); PHOSPHATIDYLSERINE AB IGM LESS THAN 25.0 U/mL (< 25.0)
== END 2017-02-19 17:40 | DRG 62 ==
LOC: NEDDLT 01:00 → N03A 01:10 → N05A 02-16 09:20
PROVIDERS: ADMIT Hospitalist; ATTEND Hospitalist
DX: I63.511 Cerebral infarction due to unspecified occlusion or stenosis of right middle cerebral artery (principal); G81.94 Hemiplegia, unspecified affecting left nondominant side; I10 Essential (primary) hypertension; E78.5 Hyperlipidemia, unspecified; K21.9 Gastro-esophageal reflux disease without esophagitis; I65.21 Occlusion and stenosis of right carotid artery; R47.1 Dysarthria and anarthria; R25.1 Tremor, unspecified; M62.830 Muscle spasm of back; Z90.5 Acquired absence of kidney; Z72.0 Tobacco use
CPT/HCPCS: 51702; 70450; 70496; 70498; 70544; 70551; 71010; 80048; 80053; 80061; 80307; 81001; 81240; 81241; 81291; 82550; 83036; 83090; 83735; 84100; 84484; 84702; 85007; 85025; 85027; 85240; 85300; 85303; 85306; 85307; 85610; 85613; 85652; 85730; 86146; 86147; 86148; 87086; 87641; 93005; 93306; 93312; 93320; 93325; 93970; 95819; 96365; 96368; 96375; 99292; C9113; J0360; J0696; J1100; J1644; J2405; J2997; J7030; Q9967